=== PATIENT | female | born 1935 | race Asian ===

== ENCOUNTER 2016-10-23 11:29 | Inpatient (IN) | payer MEDICARE, OTHER ==
[~2016-10-23] VITALS: Ht 165.1 cm; Wt 52.6 kg
[~2016-10-23 11:29] MED LIST: AMLO-218 PO; ASC500 PO; ASPI81TA3 PO; ATEN-138 PO; ATOR20TA38 PO; GABA100C14 PO; LEVO50TA74 PO; MECL25TA2 PO; NYST15CR16 TOP; ONDA4TAB35 PO
[2016-10-23] MEDS ORDERED: ONDANSETRON 4 MG INJ IV STA (11:32)
[2016-10-23] MEDS ORDERED: SOD CHLORIDE 0.9% 1,000 ML IV STA (11:32)
[2016-10-23 11:51] LABS: ADD SCAN DIFF NO
[2016-10-23 11:57] LABS: BASOPHILS % 0.3 % (0.0-2.0); HEMATOCRIT 40.9 % (37.0-47.0); HEMOGLOBIN 13.2 g/dl (12.0-16.0); LYMPHOCYTES # 0.9 10^3/ul (0.8-2.9); MEAN CORPUSCULAR HEMOGLOBIN 30.9 pg (29.0-33.0); MEAN CORPUSCULAR HGB CONC 32.3 g/dl (32.0-37.0); MEAN CORPUSCULAR VOLUME 95.8 fl (82.0-101.0); MEAN PLATELET VOLUME 10.6 fl (7.4-10.4); MONOCYTE # 0.4 10^3/ul (0.3-0.9); MONOCYTES % 5.7 % (0.0-11.0); NEUTROPHIL # 5.3 10^3/ul (1.6-7.5); NEUTROPHILS % 80.7 % (39.0-77.0); PLATELET COUNT 178 10^3/UL (140-415); RED BLOOD COUNT 4.27 10^6/ul (4.20-5.40); RED CELL DISTRIBUTION WIDTH 11.8 % (11.5-14.5); WHITE BLOOD COUNT 6.5 10^3/ul (4.8-10.8)
[2016-10-23] MEDS ORDERED: MECLIZINE 12.5 MG TAB PO ONE (12:00)
[2016-10-23 12:09] LABS: INR 1.03; PROTIME 13.5 Sec (12.2-14.2); PT RATIO 1.1
[2016-10-23 12:10] LABS: PARTIAL THROMBOPLASTIN TIME 29.9 Sec (25.0-35.0)
[2016-10-23 12:19] LABS: ALBUMIN/GLOBULIN RATIO 1.56; BILIRUBIN,INDIRECT 0.6 mg/dl (0-1.1); BILIRUBIN,TOTAL 0.6 mg/dl (0.2-1.3); CALCIUM 9.4 mg/dl (8.4-10.2); CREATININE 0.74 mg/dl (0.44-1.00); POTASSIUM 4.3 mmol/L (3.5-5.1); TOTAL PROTEIN 8.2 g/dl (6.1-8.1)
[2016-10-23] MEDS ORDERED: METO25TA7 PO (12:20)
[2016-10-23] MEDS ORDERED: LOSA100T7 PO (12:20)
[2016-10-23] MEDS ORDERED: BEN50 PO (12:20)
[2016-10-23 12:29] LABS: TROPONIN-I 0.117 ng/ml (0.00-0.12)
[2016-10-23] MEDS ORDERED: PIPER-TAZO 3.375 GM IV (PMX) 100 ML IVPB STA (12:32)
[2016-10-23] MEDS ORDERED: VANCOMYCIN 1 GM (PMX) 250 ML IVPB STA (12:32)
--- NOTE | 2016-10-23 12:38 | RADRPT ---
PROCEDURE: CT brain without contrast CLINICAL INDICATION: Headache, vomiting, dizziness TECHNIQUE: CT of the brain without contrast performed on a multidetector CT scanner, with multiplan ar reformats. One or more of the following dose reduction techniques were used: Automated exposure control, adjustment in mA and / or kV according to patient size, use of iterative reconstructive karen hnique. CTDIvol = 42 mGy; DLP = 720 mGy-cm. COMPARISON: CT brain and 01/07/2015 FINDINGS: There is an area of hypodensity with loss of jones-white differentiation compatible with recent infar ct involving the superior left cerebellar hemisphere, with a small focus also identified in the righ t cerebellar hemisphere. No acute intracranial hemorrhage is identified. There is mild local mass effect associated with the cerebellar infarct on the left without hydrocephalus or herniation identi fied. No extra-axial fluid collection is seen. No significant midline shift is identified. The ventricles and sulci are mildly enlarged compatible with generalized volume loss. There are mild areas of hypodensity in the periventricular - deep white matter which are nonspecific but suggestive of chronic small vessel ischemic changes. Jones-white differentiation is otherwise p reserved. Atherosclerotic calcifications of the intracranial internal carotid arteries are noted. Osseous structures are unremarkable. Partial posterior right ethmoid air cell opacification is seen . IMPRESSION: 1. Recent cerebellar infarcts, left greater than right, without acute intracranial hemorrhage, janet iation or hydrocephalus. 2. Mild generalized volume loss, with mild chronic small vessel ischemic changes. Results called to Dr. SMITH at 04:34 p.m., 10/23/2016. RPTAT: VV .Jose Reaves MD, Date Time Electronically viewed and signed by .Jose Reaves MD, MD on 10/23/2016 12:38 .O/
[2016-10-23] MEDS ORDERED: ASPIRIN (EC) 81 MG TAB PO ONE (13:00)
[2016-10-23] MEDS ORDERED: ASPIRIN 325 MG TAB PO ONE (13:00)
--- NOTE | 2016-10-23 14:03 | RADRPT ---
PROCEDURE: XR Chest. CLINICAL INDICATION: Shortness of breath. TECHNIQUE: Single frontal view of the chest was obtained. COMPARISON: Chest x-ray 06/12/2014 11:58 a.m. FINDINGS: The soft tissues are normal. There are degenerative osteophytes in the thoracic spine. The left ve ntricle is enlarged. There is increased density in the area of the right hilum. The mediastinum is otherwise normal. The pulmonary vasculature is normal. There are vascular calcifications in the ao rtic arch. There is a plate-like density along the upper left heart border. No focal infiltrate is identified. There is a linear scar projecting over the medial aspect of the right diaphragm which i s unchanged. The costophrenic angles are normal. Minimal right apical pleural scarring is noted. IMPRESSION: 1. A lateral view of the chest is recommended to further evaluate asymmetric density in the area of the right hilum which is unchanged compared to 06/12/2014 and therefore likely benign. 2. Left ventricular enlargement. 3. Atherosclerosis aortic arch. 4. Spondylosis of the thoracic spine. 5. Parenchymal scarring adjacent to the upper left heart border and over the medial aspect of the l eft diaphragm. There is no evidence of active cardiopulmonary disease. RPTAT:AAJJ Physician Lino Date Time Electronically viewed and signed by Physician Lino on 10/23/2016 14:02 CHELY/
[2016-10-23] MEDS ORDERED: ACETAMINOPHEN 325 MG TAB PO PRN ×2 (14:30→19:00)
[2016-10-23] MEDS ORDERED: ONDANSETRON 4 MG INJ IV PRN ×2 (14:30→19:00)
--- NOTE | 2016-10-23 16:38 | ERA ---
ER Documentation Chief Complaint Date/Time DATE: 10/23/16 TIME: 16:24 Chief Complaint PT FROM HOME FOR VOMIT AND NAUSEA SINCE 10/22 AT 2300 HPI This is an 81-year-old female that presents to the emergency department brought in by EMS after her son phone 911 for persistent nausea and vomiting. At 1 AM, 13 hours prior to arrival, the patient stated she felt nauseous and had an episode of nonbloody nonbilious emesis roughly 1 hour after eating fish. She attributed this to food poisoning but denied any abdominal pain or diarrhea. She stated the nausea persisted throughout the night and she did not want to move from the kitchen floor. Her son tried to get her to bed but she stated she felt more comfortable lying supine on the kitchen floor. She continued to have multiple episodes of nonbloody nonbilious emesis throughout the night. She denied any weakness of her upper or lower extremities and also denied a headache or changes in vision. She she denied any recent remote head trauma. Again she denied abdominal pain and had no shortness of breath at rest or exertion. She no chest pain or pressure that radiates to the neck arm back or jaw. She does have a history of vertigo and took a meclizine with no improvement of her symptoms. However the patient denied dizziness or vertigo at this time. She also denied any tinnitus. Her son became concerned and therefore phoned 911 and she was brought to the emergency department to be further evaluated. ROS All systems reviewed and are negative except as per history of present illness. Medications Home Meds Reported Medications Metoprolol Succinate* (Toprol XL*) 25 Mg Tab.sr.24h, 25 MG PO BID, #30 TAB 10/23/16 Losartan Potassium* (Losartan Potassium*) 100 Mg Tablet, 100 MG PO DAILY, TAB 10/23/16 Diphenhydramine Hcl* (Benadryl*) 50 Mg Cap, 50 MG PO QHS Y for SLEEP, CAP 10/23/16 Aspirin* (Aspirin* Chew) 81 Mg Tab.chew, 81 MG PO DAILY, TAB.CHEW 06/12/14 Levothyroxine Sodium* (Levothyroxine Sodium*) 50 Mcg Tablet, 50 MCG PO AC BREAKFAST, TAB 06/12/14 Discontinued Reported Medications Ascorbic Acid (Vitamin C) 500 Mg Tab, 1000 MG PO DAILY, TAB 06/12/14 Gabapentin* (Gabapentin*) 100 Mg Capsule, 100 MG PO TID, CAP 06/12/14 Discontinued Scripts Nystatin-Triamcinolone* (Nystatin-Triamcinolone* Cream) 15 Gm Cream.gm., 1 APPLIC TOP BID for 7 Days, TUB Prov:LONNY MEDINA MD 01/11/15 Ondansetron Hcl* (Zofran* ODT) 4 mg -ODT Tab.disper, 4 MG PO Q6 Y for NAUSEA AND /OR VOMITING, #30 TAB Prov:LONNY MEDINA MD 01/11/15 Meclizine Hcl* (Antivert*) 25 Mg Tablet, 25 MG PO Q6H Y for dizziness, #20 TAB Prov:LONNY MEDINA MD 01/11/15 Atenolol (Tenormin) 25 Mg Tab, 25 MG PO DAILY for 30 Days, TAB Prov:ABBY IBARRA 01/09/15 Amlodipine Besylate* (Norvasc*) 10 Mg Tab, 5 MG PO BID for 30 Days Prov:ABBY IBARRA 01/09/15 Atorvastatin Calcium* (Atorvastatin Calcium*) 20 Mg Tab, 20 MG PO HS, #30 Prov:ABBY IBARRA 15 Allergies Allergies: Coded Allergies: No Known Allergies (Verified Allergy, Mild, 10/23/16) PMhx/Soc History of Surgery: No Anesthesia Reaction: No Hx Neurological Disorder: No Hx Respiratory Disorders: No Hx Cardiac Disorders: Yes (IN, STENT) Hx Psychiatric Problems: No Hx Miscellaneous Medical Probl: Yes (htn, dyslipidemia, atherosclerosis heart dse, SYNCOPE ) Hx Alcohol Use: No Hx Substance Use: No Hx Tobacco Use: No Smoking Status: Never smoker Physical Exam Vitals Vital Signs Date Time Temp Pulse Resp B/P Pulse Ox O2 Delivery O2 Flow Rate FiO2 10/23/16 15:43 67 16 145/67 100 Nasal Cannula 2.0 10/23/16 13:39 85 24 169/105 98 Nasal Cannula 2.0 10/23/16 11:46 79 25 98 Room Air 10/23/16 11:43 98.6 88 17 183/61 98 Physical Exam Constitutional:Well-developed. Well-nourished. Lying supine in a stretcher covered and nonbloody nonbilious emesis HEENT:Normocephalic. Atraumatic.Pupils were equal round reactive to light. Dry mucous membranes.No tonsillar exudates. Neck: No nuchal rigidity. No lymphadenopathy. No posterior cervical spine tenderness or step-offs. Respiratory: Not using accessory muscles of respiration.Lungs were clear to auscultation bilaterally. No rhonchi. No rales. No wheezing. Cardiovascular: Regular rate regular rhythm.No murmurs. No rubs were appreciated.S1, S2 normal. Distal pulses are palpable 2+ bilaterally. GI: Abdomen was soft. Nontender. Non Distended. No pulsatile abdominal masses or bruits. No rebound. No guarding. Bowel sounds were present and normal. Muscle skeletal: Full range of motion of both the upper and lower extremities bilaterally.Normal muscle tone.No assymetrical calf tenderness or swelling. Skin: No petechia, no purpura. No lesions on the palms or the soles of the feet. No maculopapular rash. NEURO: Patient was alert, awake, orientated x3.No facial droop. Gait not observed as patient felt too weak to ambulate.Speech had regular rate and rhythm. No focal neurological deficits. Handgrip equal and symmetrical bilaterally. No slurred speech. Result Diagram: 10/23/16 1130 10/23/16 1130 Results 24 hrs Laboratory Tests Test 10/23/16 11:30 10/23/16 14:25 White Blood Count 6.510^3/ul Red Blood Count 4.2710^6/ul Hemoglobin 13.2g/dl Hematocrit 40.9% Mean Corpuscular Volume 95.8fl Mean Corpuscular Hemoglobin 30.9pg Mean Corpuscular Hemoglobin Concent 32.3g/dl Red Cell Distribution Width 11.8% Platelet Count 16134^3/UL Mean Platelet Volume 10.6fl Neutrophils % 80.7% Lymphocytes % 13.0% Monocytes % 5.7% Eosinophils % 0.0% Basophils % 0.3% Nucleated Red Blood Cells % 0.0/100WBC Neutrophils # 5.310^3/ul Lymphocytes # 0.910^3/ul Monocytes # 0.410^3/ul Eosinophils # 0.010^3/ul Basophils # 0.010^3/ul Nucleated Red Blood Cells # 0.010^3/ul Prothrombin Time 13.5Sec Prothrombin Time Ratio 1.1 INR International Normalized Ratio 1.03 Activated Partial Thromboplast Time 29.9Sec Sodium Level 138mmol/L Potassium Level 4.3mmol/L Chloride Level 100mmol/L Carbon Dioxide Level 23mmol/L Anion Gap 19 Blood Urea Nitrogen 13mg/dl Creatinine 0.74mg/dl Glucose Level 139mg/dl Lactic Acid Level 6.9mmol/L 2.9mmol/L Calcium Level 9.4mg/dl Total Bilirubin 0.6mg/dl Direct Bilirubin 0.00mg/dl Indirect Bilirubin 0.6mg/dl Aspartate Amino Transf (AST/SGOT) 37IU/L Alanine Aminotransferase (ALT/SGPT) 28IU/L Alkaline Phosphatase 103IU/L Troponin I 0.117ng/ml Total Protein 8.2g/dl Albumin 5.0g/dl Globulin 3.20g/dl Albumin/Globulin Ratio 1.56 Amylase Level 71U/L Lipase 63U/L Current Medications Medications (Trade) Dose Ordered Sig/Zay Route PRN Reason Start Time Stop Time Status Last Admin Dose Admin Sodium Chloride (NS) 1,000 ml @ 1,000 mls/hr Q1H STAT IV 10/23/16 11:32 10/23/16 12:31 DC 10/23/16 11:58 Ondansetron HCl (Zofran Inj) 4 mg ONCE STAT IV 10/23/16 11:32 10/23/16 11:35 DC 10/23/16 11:58 Meclizine HCl 25 mg 25 mg ONCE ONCE PO 10/23/16 12:00 10/23/16 12:01 DC 10/23/16 11:58 Vancomycin HCl 250 ml @ 125 mls/hr ONCE STAT IVPB 10/23/16 12:32 10/23/16 14:31 DC 10/23/16 14:25 Piperacillin Sod/ Tazobactam Sod (Zosyn 3.375gm/ 100 ml (Pmx)) 100 ml @ 200 mls/hr ONCE STAT IVPB 10/23/16 12:32 10/23/16 13:01 DC 10/23/16 13:07 Aspirin (Aspirin) 325 mg ONCE ONCE PO 10/23/16 13:00 10/23/16 13:01 Cancel Aspirin (Halfprin) 81 mg ONCE ONCE PO 10/23/16 13:00 10/23/16 13:01 DC 10/23/16 13:15 Ondansetron HCl (Zofran Inj) 4 mg ER BRIDGE PRN IV NAUSEA AND/OR VOMITING 10/23/16 14:30 10/24/16 14:29 Acetaminophen (Tylenol Tab) 650 mg ER BRIDGE PRN PO MILD PAIN/FEVER 10/23/16 14:30 10/24/16 14:29 Procedures/MDM This patient presented to the emergency department with nausea and vomiting. She is meeting placed in a special crimes investigator continuous pulse oximetry and IV access was established by nursing staff. The patient had no focal neurological deficits to suggest a CVA at this time given that upon evaluation in attempting to sit the patient up she started to feel a sudden onset of dizziness I did feel is necessary to obtain a CT scan of the patient's head. She was hypertensive and a CT scan was concerning for an acute ischemic infarct. I spoke with the radiologist at this time. I spoke with the telemetry neurologist on-call, who evaluated the patient, and did agree that the patient was not a TPA candidate. Please note that a code stroke was not called upon arrival due to the patient not complaining of any strokelike symptoms at this time. She was given a 1 mg of aspirin and an MRI and MRA of the head and neck was ordered as requested by the neurologist. This patient presented to the emergency department with severely elevated blood pressure and had abnormal findings on the CT scan of her head. My differential diagnosis included but was not limited to conditions that could end-organ damage such as acute coronary syndrome, acute pulmonary edema, aortic dissection , subarachnoid hemorrhage, intracerebral hemorrhage, cerebral infarction, withdrawal syndromes from beta blockers, or states of catecholamine excess such as pheochromocytoma or drug intoxication. The patient had uncontrolled hypertensive with end-organ damage to suggest hypertensive emergency. The treatment goal was immediate reduction of the mean arterial blood pressure. This was done in a controlled, graded manor, using improvement of the patient's condition as a guide. The patient's blood pressure reduction did not exceed more then a 20-25 percent reduction within the first 30 to 60 minutes. The patient was put on a special crimes investigator, continuous pulse oximetry, and IV access was established by nursing staff. The antihypertensive agent used was IV labetalol. 12 Lead EKG tracing ordered and reviewed by myself showed: Normal sinus rhythm of 72 bpm and no arrhythmia. DC interval normal. QRS duration normal. No ST segment elevation No ST segment depression. No changes consistent with acute ischemia. CT scan of the head or and reviewed by myself as well as the radiologist indicated the followin. Recent cerebellar infarcts, left greater than right, without acute intracranial hemorrhage, herniation or hydrocephalus. 2. Mild generalized volume loss, with mild chronic small vessel ischemic changes. As obtained a chest radiograph which showed no infiltrates or pneumothorax or pleural effusion Patient will be admitted in serious condition to Dr. to the telemetry service with an anticipated stay of greater than 2 midnights. Critical Care: Time: 60 minutes Treatments/Evaluations: Close monitoring and treatment of unstable vital signs, cardiorespiratory, and neurologic status, while maintaining tight balance of fluid, respiratory, and cardiac interventions. Time does not include performing any of the above billable procedures. Departure Diagnosis: Primary Impression: Nausea and vomiting Qualified Code: R11.2 - Non-intractable vomiting with nausea, unspecified vomiting type Additional Impressions: Cerebellar infarction Hypertensive emergency, no CHF Condition: Serious PAO SMITH Oct 23, 2016 16:36
--- NOTE | 2016-10-23 17:18 | RADRPT ---
PROCEDURE: MRI Brain without contrast. CLINICAL INDICATION: Headaches vomiting and dizziness TECHNIQUE: An MRI of the brain was performed on a high resolution hi-definition MRI scanner utiliz ing the following sequences: Sagittal and axial T1 weighted, axial T2 weighted, axial T2 FLAIR, axia l diffusion weighted with ADC mapping, coronal GRE, and axial T1 FLAIR. COMPARISON: CT dated 10/23/2016 FINDINGS: The scalp and calvarium are normal. The paranasal sinuses are remarkable for mild chronic bilateral frontal, ethmoid maxillary and sphenoid sinus disease. The bilateral mastoid air cells are clear an d the middle ear cavities are clear. On the FLAIR and T2-weighted sequences, multiple punctate foci of hyperintensity are present in the bilateral centrum semiovale, bilateral periventricular white matter compatible with mild chronic adeel rovascular ischemic disease. Also noted are wedge shaped areas of FLAIR and T2 hyperintensity withi n the left cerebellum extending into the left vermis as well as a smaller focus of hyperintensity in the right cerebellum. On diffusion weighted sequences, restricted diffusion is present in the left cerebellum, left vermis and right cerebellum compatible with acute non hemorrhagic infarcts.The elidia tricles and sulci are age appropriate. Mild to moderate diffuse volume loss is present. No evidence of intracranial hemorrhage, mass effect or midline shift is present. . No diffusion weighted abnorm alities are seen to suggest the presence of acute ischemia or recent infarct. No hypointense signal abnormalities are seen on the GRE images to suggest the presence of blood degradation products. Normal flow voids are visible in the proximal intracranial arteries and dural sinuses, indicating patency. IMPRESSION: 1. Acute non hemorrhagic left cerebellar hemisphere greater than right cerebellar infarcts with invo lvement of the left superior and inferior vermis. 2. Mild chronic microvascular ischemic disease 3. Mild to moderate diffuse volume loss A call report was made to Kaylyn Fowler at 10/23/2016 5:14:54 PM following the completion of the examination by the undersigned. RPTAT: HDC .Aleena Javed MD, Date Time Electronically viewed and signed by .Aleena Javed MD, on 10/23/2016 17:18 .C/
--- NOTE | 2016-10-23 17:22 | RADRPT ---
PROCEDURE: MRA Brain. CLINICAL INDICATION: Stroke evaluation TECHNIQUE: An MRA of the brain was performed on a GE 3.0 Sofi scanner 3-D [id number] MR angio graphy technique. Source and MIP images were reviewed. COMPARISON: CT and MR brain 10/23/2016 FINDINGS: The internal carotid arteries are patent and normal in caliber. The middle cerebral and the anterio r cerebral arteries are also patent and normal in caliber with no significant luminal irregularity o r narrowing identified. The vertebral arteries, basilar artery, and superior cerebellar arteries ar e visualized and normal in appearance. The bilateral vertebral arteries are codominant the posteri or cerebral arteries are patent at their origins bilaterally as well as at the P1 P2 segments. Poor antegrade flow is noted to adequately evaluate the P 3 and more distal posterior cerebral artery br anches. No aneurysms are detected. IMPRESSION: 1. Normal MR angiogram of the [place]. 2. Bilateral attenuated segments of the third order posterior cerebral artery branches which may re present decreased antegrade flow. A call report was made to Kaylyn Fowler at 10/23/2016 5:18:50 PM following the completion of the examination by the undersigned. RPTAT: HDC .Aleena Javed MD, Date Time Electronically viewed and signed by .Aleena Javed MD, on 10/23/2016 17:21 .C/
--- NOTE | 2016-10-23 18:08 | RADRPT ---
PROCEDURE: MRA of the neck without contrast CLINICAL INDICATION: CVA. TECHNIQUE: 2-D and 3-D [id number] MRA of the neck was performed on a 1.5 Sofi MRI scanner. 3- D MIP reconstructions were generated. COMPARISON: Brain MRI dated 10/23/2016. FINDINGS: There is irregular loss of flow signal in the high cervical right ICA, nonspecific. In-plain saturat ion artifact is seen along the distal bilateral vertebral arteries. No significant stenosis or occl usion is identified along the left cervical and bilateral vertebral arteries. No aneurysm is identif ied. IMPRESSION: 1. Irregular loss of flow signal in the high cervical right ICA, nonspecific but possibly represent ing non hemodynamically significant stenosis due to atherosclerotic plaque. This could be further ev aluated with CTA if clinically warranted. 2. No significant stenosis or occlusion along the left carotid and bilateral vertebral arteries. RPTAT: HTAR .Lyle Castañeda MD, MD Date Time Electronically viewed and signed by .Lyle Castañeda MD, MD on 10/23/2016 18:07 .R/
[2016-10-23] MEDS ORDERED: HYDROCODONE/APAP (5/325) TAB PO PRN (19:00)
[2016-10-23] MEDS ORDERED: BISACODYL 10 MG SUPP PR PRN (19:00)
[2016-10-23] MEDS ORDERED: morphine 2 MG INJ IV PRN (19:00)
[2016-10-23] MEDS ORDERED: MECLIZINE 25 MG TAB PO PRN (19:00)
[2016-10-23] MEDS ORDERED: MAGNESIUM HYDROXIDE 30ML CUP PO PRN (19:00)
[2016-10-23] MEDS ORDERED: NACL 0.9% 3 ML SYG IV SCH (19:00)
[2016-10-23] MEDS ORDERED: DOCUSATE SODIUM 100 MG CAP PO PRN (19:00)
[2016-10-23] MEDS: SOD CHLORIDE 0.9% 1,000 ML IV SCH (19:52)
[2016-10-23 22:04] VITALS: PULSE 64
[2016-10-23 22:20] VITALS: BP 195/81; PULSE 66; RESP 16
[2016-10-23 22:44] VITALS: Ht 165.1 cm; Wt 52.6 kg
[2016-10-23 22:49] VITALS: BP 187/78; PULSE 66
[2016-10-23 22:50] VITALS: BP 186/80; PULSE 67
[2016-10-23] MEDS: FAMOTIDINE 20 MG TAB PO SCH (22:54)
[2016-10-23] MEDS: METOPROLOL 25 MG TAB PO SCH (22:54)
[2016-10-24] VITALS (17 sets, daily range): BP systolic 117–203; BP diastolic 54–103; PULSE 49–90; RESP 17–19
[2016-10-24] MEDS: SOD CHLORIDE 0.9% 1,000 ML IV SCH (06:04)
[2016-10-24] MEDS ORDERED: LEVOTHYROXINE 50 MCG TAB PO SCH (07:00)
[2016-10-24] MEDS: ASPIRIN 81 MG TAB PO SCH (08:55)
[2016-10-24] MEDS: LOSARTAN 50 MG TAB PO SCH (08:55)
[2016-10-24] MEDS: FAMOTIDINE 20 MG TAB PO SCH (08:56)
[2016-10-24] MEDS: METOPROLOL 25 MG TAB PO SCH (08:56)
[2016-10-24] MEDS ORDERED: ENOXAPARIN 40 MG/0.4 ML SYG SC SCH (09:00)
[2016-10-24 09:11] LABS: ADD SCAN DIFF NO
[2016-10-24 09:17] LABS: BASOPHIL # 0.1 10^3/ul (0.0-0.1); EOSINOPHILS # 0.2 10^3/ul (0.0-0.5); EOSINOPHILS % 2.3 % (0.0-7.0); HEMATOCRIT 38.2 % (37.0-47.0); HEMOGLOBIN 12.3 g/dl (12.0-16.0); LYMPHOCYTES % 28.6 % (15.0-51.0); MEAN CORPUSCULAR HEMOGLOBIN 31.5 pg (29.0-33.0); MEAN CORPUSCULAR HGB CONC 32.2 g/dl (32.0-37.0); MEAN CORPUSCULAR VOLUME 97.9 fl (82.0-101.0); MEAN PLATELET VOLUME 10.9 fl (7.4-10.4); MONOCYTE # 0.9 10^3/ul (0.3-0.9); NEUTROPHIL # 3.9 10^3/ul (1.6-7.5); PLATELET COUNT 160 10^3/UL (140-415); RED CELL DISTRIBUTION WIDTH 11.9 % (11.5-14.5); WHITE BLOOD COUNT 7.1 10^3/ul (4.8-10.8)
[2016-10-24 09:36] LABS: ALBUMIN/GLOBULIN RATIO 1.21; BILIRUBIN,INDIRECT 1.3 mg/dl (0-1.1); BILIRUBIN,TOTAL 1.3 mg/dl (0.2-1.3); CHOL/HDL RATIO 3.8 RATIO; CREATININE 0.72 mg/dl (0.44-1.00); MAGNESIUM 1.7 mg/dl (1.7-2.5); POTASSIUM 3.1 mmol/L (3.5-5.1); TOTAL PROTEIN 7.3 g/dl (6.1-8.1)
[2016-10-24] MEDS ORDERED: POTASSIUM CHLORIDE (SR) 20 MEQ TAB PO STA (10:55)
[2016-10-24] MEDS ORDERED: MAGNESIUM SULFATE 2 GM/50 ML 50 ML IVPB ONE (11:00)
[2016-10-24] MEDS ORDERED: POTASSIUM CHLORIDE 250 ML IVPB ONE (11:00)
--- NOTE | 2016-10-24 11:02 | HP ---
Date/Time of Note Date/Time of Note DATE: 10/24/16 TIME: 11:01 Assessment/Plan VTE Prophylaxis VTE Prophylaxis Intervention: other (Lovenox treatment dosing) Lines/Catheters Urinary Cath still in place: No Assessment/Plan Assessment/Plan 81-year-old female with: 1. Acute bilateral cerebellar CVA, symptomatic with vertigo and nausea, also found to be in atrial fibrillation Continue blood pressure control for now allowing for permissive hypertension Anticoagulation with Lovenox 2D echocardiogram done results pending Neurology consult PT, OT, ST consults 2. Atrial fibrillation, will make sure patient is back on Toprol XL twice daily , continue Lovenox for anticoagulation was planned to switch to Xarelto or Eliquis prior to discharge if 2D echocardiogram allows Rate control and telemetry monitoring Also I will decrease her Synthroid seems she may be a little over replaced 3. Hypothyroidism: TFTs showing mild suppression of TSH, will decrease her Synthroid dosing 4. Hyperlipidemia: Follow-up on fasting lipid panel, continue statin therapy especially in setting of acute CVA 5. Hypertension: Continue home medication again allowing for some permissive hypertension in setting of acute CVA. 6. Hypokalemia: Replete potassium and magnesium levels Prophylaxis: Patient on full anticoagulation in setting of A. fib and acute CVA , Pepcid for GI prophylaxis Disposition: Neurology consult, heart rate control, 2D echocardiogram which possible cardiology consult as needed, PT/OT/ST evaluation HPI/ROS Admit Date/Time Admit Date/Time Oct 23, 2016 at 14:30 Hx of Present Illness Chief complaint: Dizziness, nausea, vomiting 24 hours History of presenting illness: This is a 81-year-old female with history of possible coronary artery disease, atrial fibrillation, has been on beta- blockers but also reports that she has been on aspirin for the past few years., Also has hypothyroidism on Synthroid, brought into the emergency department with reported episode of nausea vomiting and severe dizziness for 24 hours. CAT scan of the head in the emergency department did show possible acute cerebral or cerebellar CVA. Stroke code was called apparently but the patient was way out of window therefore recommendation was for her to get MRIs done. MRIs did confirm cerebellar stroke. Patient was admitted to the telemetry floor on monitor. This morning she did go into atrial fibrillation, she is now on the full anticoagulation along with secondary prevention of stroke protocol. She is still vertiginous, no further motor deficit. She denies chest pain, she feels a little nauseous. ROS Constitutional: fatigue, nausea, poor po Respiratory: no complaints Cardiovascular: no complaints Gastrointestinal: no complaints Genitourinary: no complaints Musculoskeletal: no complaints Skin: no complaints Neurologic: dizziness Endocrine: no complaints Psychological: no complaints PMH/Family/Social Past Medical History Atrial fibrillation possibly paroxysmal Previous history of CVA versus acute IL family unclear Possible history of cardiac stent family unclear Hypertension Hypothyroidism Hyperlipidemia Past Surgical History Past Surgical Hx: no surgical history Social History Alcohol Use: none Smoking Status: Never smoker Drug Use: none Exam/Review of Systems Vital Signs Vitals Vital Signs Date Time Temp Pulse Resp B/P Pulse Ox O2 Delivery O2 Flow Rate FiO2 10/24/16 08:14 75 10/24/16 07:48 98.1 17 117/57 96 10/23/16 22:20 Nasal Cannula 2.0 Intake and Output 10/23/16 10/23/16 10/24/16 15:00 23:00 07:00 Intake Total 100 ml 360 ml Output Total 300 ml Balance 100 ml 60 ml Exam Constitutional: alert, distress (From vertigo and dizziness), oriented Respiratory: clear to auscultation, normal air movement Cardiovascular: irregular rhythm (Atrial fibrillation) Gastrointestinal: non-tender, soft Musculoskeletal: nl extremities to inspection Extremities: normal pulses, other (No edema, clubbing or cyanosis) Neurological: CABINET ASSEMBLER II-XII intact, lethargic, nl mental status, nl speech, nl strength (5 out of 5), other (Vertigo, imbalance. No nystagmus) Labs Result Diagram: 10/24/1613 10/24/1617 Medications Medications Current Medications Sodium Chloride (NS) 1,000 ml @ 80 mls/hr [id number] IV Last administered on 10/24 06:04; Admin Dose 80 MLS/HR; Start 10/23/16 at 18:35 Ondansetron HCl (Zofran Inj) 4 mg Q6H PRN IV NAUSEA AND/OR VOMITING; Start at 19:00 Aspirin (Aspirin) 81 mg DAILY PO Last administered on 10/24/16 08:55; Admin Dose 81 MG; Start 10/24/16 at 09:00 Acetaminophen (Tylenol Tab) 650 mg Q6H PRN PO PAIN LEVEL 1-3 OR FEVER Last administered on 10/23/16 23:27; Admin Dose 650 MG; Start 10/23/16 at 19:00 Acetaminophen/ Hydrocodone Bitart ([place] (5/325)) 1 tab Q6H PRN PO PAIN LEVEL 4 -6; Start 10/23/16 at 19:00 Morphine Sulfate (morphine) 2 mg Q4H PRN IV PAIN LEVEL 7-10; Start 10/23/16 at 19:00 Docusate Sodium (Colace) 100 mg Q12H PRN PO CONSTIPATION; Start 10/23/16 at 19: 00 Magnesium Hydroxide (Milk Of Mag) 30 ml DAILY PRN PO CONSTIPATION; Start at 19:00 Bisacodyl (Dulcolax Supp) 10 mg DAILY PRN MS CONSTIPATION; Start 10/23/16 at 19 :00 Famotidine (Pepcid) 20 mg DAILY PO Last administered on 10/24/16 08:56; Admin Dose 20 MG; Start 10/23/16 at 21:00 Enoxaparin Sodium (Lovenox) 40 mg DAILY SC Last administered on 10/24/16 09:00 ; Admin Dose 40 MG; Start 10/24/16 at 09:00 Meclizine HCl (Antivert) 25 mg TID PRN PO vertigo Last administered on 06:05; Admin Dose 25 MG; Start 10/23/16 at 19:00 Losartan Potassium (Cozaar) 100 mg DAILY PO Last administered on 10/24/16 08: 55; Admin Dose 100 MG; Start 10/24/16 at 09:00 Metoprolol Tartrate 25 mg 25 mg BID PO Last administered on 10/24/16 08:56; Admin Dose 25 MG; Start 10/23/16 at 21:00 Magnesium Sulfate (Magnesium Sulfate 2 Gm/50 ml) 50 ml @ 25 mls/hr ONCE ONCE IVPB ; Start 10/24/16 at 11:00; Stop 10/24/16 at 12:59; Status FRANKLIN PALOMARES Oct 24, 2016 11:02
[2016-10-24] MEDS: POTASSIUM CHLORIDE 40 MEQ in SOD CHLORIDE 0.9% 1,000 ML IV SCH (14:07)
[2016-10-24 16:30] LABS: CK-MB 3.88 ng/ml (0.0-2.4)
[2016-10-24 16:34] LABS: TROPONIN-I 0.218 ng/ml (0.00-0.12)
[2016-10-24] MEDS: ATORVASTATIN 20 MG TAB PO SCH (21:30)
[2016-10-24] MEDS: ENOXAPARIN 60 MG/0.6 ML SYG SC SCH (21:32)
[2016-10-24 23:36] LABS: CK-MB 3.43 ng/ml (0.0-2.4)
[2016-10-24] MEDS: hydrALAzine 20 MG INJ IV PRN (23:39)
[2016-10-24 23:43] LABS: TROPONIN-I 0.197 ng/ml (0.00-0.12)
[2016-10-25] VITALS (14 sets, daily range): BP systolic 157–197; BP diastolic 72–101; PULSE 40–140; RESP 18–20
[2016-10-25] MEDS: POTASSIUM CHLORIDE 40 MEQ in SOD CHLORIDE 0.9% 1,000 ML IV SCH ×3 (03:53→17:44)
[2016-10-25] MEDS: LEVOTHYROXINE 25 MCG TAB PO SCH (07:10)
[2016-10-25 07:24] LABS: ADD SCAN DIFF NO
[2016-10-25 07:28] LABS: BASOPHIL # 0.1 10^3/ul (0.0-0.1); BASOPHILS % 0.7 % (0.0-2.0); EOSINOPHILS # 0.1 10^3/ul (0.0-0.5); EOSINOPHILS % 0.6 % (0.0-7.0); HEMATOCRIT 39.2 % (37.0-47.0); HEMOGLOBIN 12.8 g/dl (12.0-16.0); LYMPHOCYTES # 1.5 10^3/ul (0.8-2.9); LYMPHOCYTES % 17.6 % (15.0-51.0); MEAN CORPUSCULAR HEMOGLOBIN 31.8 pg (29.0-33.0); MEAN CORPUSCULAR HGB CONC 32.7 g/dl (32.0-37.0); MEAN CORPUSCULAR VOLUME 97.3 fl (82.0-101.0); MEAN PLATELET VOLUME 10.9 fl (7.4-10.4); MONOCYTES % 11.9 % (0.0-11.0); NEUTROPHIL # 5.7 10^3/ul (1.6-7.5); NEUTROPHILS % 68.7 % (39.0-77.0); PLATELET COUNT 165 10^3/UL (140-415); RED BLOOD COUNT 4.03 10^6/ul (4.20-5.40); RED CELL DISTRIBUTION WIDTH 11.9 % (11.5-14.5); WHITE BLOOD COUNT 8.3 10^3/ul (4.8-10.8)
[2016-10-25 07:52] LABS: ALBUMIN 3.8 g/dl (3.3-4.9); ALBUMIN/GLOBULIN RATIO 1.26; BILIRUBIN,INDIRECT 0.5 mg/dl (0-1.1); BILIRUBIN,TOTAL 0.5 mg/dl (0.2-1.3); CREATININE 0.68 mg/dl (0.44-1.00); POTASSIUM 4.4 mmol/L (3.5-5.1); TOTAL PROTEIN 6.8 g/dl (6.1-8.1)
[2016-10-25 07:54] LABS: CK-MB 2.48 ng/ml (0.0-2.4)
[2016-10-25 08:03] LABS: TROPONIN-I 0.151 ng/ml (0.00-0.12)
[2016-10-25 08:17] LABS: MAGNESIUM 1.9 mg/dl (1.7-2.5); PHOSPHORUS 2.8 mg/dl (2.5-4.9)
[2016-10-25] MEDS: FAMOTIDINE 20 MG TAB PO SCH (08:28)
[2016-10-25] MEDS: ASPIRIN 81 MG TAB PO SCH (08:28)
[2016-10-25] MEDS: hydrALAzine 20 MG INJ IV PRN ×2 (08:29→17:44)
[2016-10-25] MEDS: ENOXAPARIN 60 MG/0.6 ML SYG SC SCH ×2 (08:31→20:58)
[2016-10-25] MEDS: LOSARTAN 50 MG TAB PO SCH (08:45)
--- NOTE | 2016-10-25 11:29 | PN ---
Date/Time of Note Date/Time of Note DATE: 10/25/16 TIME: 11:12 Assessment/Plan VTE Prophylaxis VTE Prophylaxis Intervention: LMWH (treatement dose ) Lines/Catheters Urinary Cath still in place: No Assessment/Plan Assessment/Plan 81-year-old female with: 1. Acute bilateral cerebellar CVA, symptomatic with vertigo and nausea, also found to be in paroxysmal atrial fibrillation. Still with Vertigo. Continue blood pressure control with Cozaar and Norvasc added for better BP control Anticoagulation with Lovenox 2D echocardiogram done results pending Neurology consult pending PT, OT, ST pending. 2. Paroxysmal Atrial fibrillation, with frequent pauses so [employer] disocntinued and patient back in SR this AM Continue Lovenox for anticoagulation with plan to switch to Xarelto or Eliquis prior to discharge if 2D echocardiogram allows Telemetry monitoring Decreased Synthroid dosing. 3. Mildly elevated Troponins, likely trop leak with episode of A fib with RVR and acute CVA. Trending down, on ASA and anticoagulated already Cardiology consult pending 2D echo already done . 4. Hypothyroidism: TFTs showing mild suppression of TSH, decreased Synthroid dosing to 25 mcg daily. 5. Hyperlipidemia: Follow-up on fasting lipid panel, continue statin therapy especially in setting of acute CVA 6. Hypertension: Continue Cozaar and Norvasc added. Hydralazine prn. Prophylaxis: Patient on full anticoagulation in setting of A. fib and acute CVA , Pepcid for GI prophylaxis Disposition: Neurology and Cardiology consult pending. Heart rate control, 2D echocardiogram, PT/OT/ST evaluation Subjective 24 Hr Interval Summary Free Text/Dictation Patient feels a little better today, no chest pain or SOB Still with dizziness and vertigo and cannot stand up Poor appetite due to dizziness per patient. Neurology and Cardiology consults pending. Exam/Review of Systems Vital Signs Vitals Vital Signs Date Time Temp Pulse Resp B/P Pulse Ox O2 Delivery O2 Flow Rate FiO2 10/25/16 08:32 Nasal Cannula 2.0 10/25/16 08:32 78 10/25/16 07:54 99.4 20 184/81 100 Intake and Output 10/24/16 10/24/16 10/25/16 15:00 23:00 07:00 Intake Total 490 ml 920 ml 300 ml Output Total 2000 ml 800 ml Balance 490 ml -1080 ml -500 ml Exam Constitutional: alert, frail, oriented Head: atraumatic Eyes: EOMI, nl conjunctiva, nl lids Neck: supple Respiratory: clear to auscultation, normal air movement Cardiovascular: nl pulses, other (back in SR), regular rate and rhythm Gastrointestinal: non-tender, soft Musculoskeletal: nl extremities to inspection Extremities: normal pulses, other (no edema, clubbing or cyanosis ) Neurological: DENTAL PRACTITIONER II-XII intact, nl mental status, nl speech, nl strength, other (vertigo and imbalance ) Results Result Diagram: 10/25/16 0608 10/25/16 0608 Results 24 hrs Laboratory Tests Test 10/24/16 15:45 10/24/16 22:54 10/25/16 06:08 10/25/16 06:10 Creatine Kinase 159 189 141 Creatine Kinase Index 2.4 1.8 1.8 Creatinine Kinase MB (Mass) 3.88 H 3.43 H 2.48 H Troponin I 0.218 *H 0.197 *H 0.151 *H White Blood Count 8.3 Red Blood Count 4.03 L Hemoglobin 12.8 Hematocrit 39.2 Mean Corpuscular Volume 97.3 Mean Corpuscular Hemoglobin 31.8 Mean Corpuscular Hemoglobin Concent 32.7 Red Cell Distribution Width 11.9 Platelet Count 165 Mean Platelet Volume 10.9 H Neutrophils % 68.7 Lymphocytes % 17.6 Monocytes % 11.9 H Eosinophils % 0.6 Basophils % 0.7 Nucleated Red Blood Cells % 0.0 Neutrophils # 5.7 Lymphocytes # 1.5 Monocytes # 1.0 H Eosinophils # 0.1 Basophils # 0.1 Nucleated Red Blood Cells # 0.0 Sodium Level 144 Potassium Level 4.4 Chloride Level 103 Carbon Dioxide Level 30 Anion Gap 15 Blood Urea Nitrogen 14 Creatinine 0.68 Glucose Level 108 Calcium Level 9.0 Total Bilirubin 0.5 Direct Bilirubin 0.00 Indirect Bilirubin 0.5 Aspartate Amino Transf (AST/SGOT) 39 Alanine Aminotransferase (ALT/SGPT) 26 Alkaline Phosphatase 86 Total Protein 6.8 Albumin 3.8 Globulin 3.00 Albumin/Globulin Ratio 1.26 Phosphorus Level 2.8 Magnesium Level 1.9 Medications Medications Current Medications Ondansetron HCl (Zofran Inj) 4 mg Q6H PRN IV NAUSEA AND/OR VOMITING; Start at 19:00 Aspirin (Aspirin) 81 mg DAILY PO Last administered on 10/25/16 08:28; Admin Dose 81 MG; Start 10/24/16 at 09:00 Acetaminophen (Tylenol Tab) 650 mg Q6H PRN PO PAIN LEVEL 1-3 OR FEVER Last administered on 10/23/16 23:27; Admin Dose 650 MG; Start 10/23/16 at 19:00 Acetaminophen/ Hydrocodone Bitart ([place] (5/325)) 1 tab Q6H PRN PO PAIN LEVEL 4 -6; Start 10/23/16 at 19:00 Morphine Sulfate (morphine) 2 mg Q4H PRN IV PAIN LEVEL 7-10; Start 10/23/16 at 19:00 Docusate Sodium (Colace) 100 mg Q12H PRN PO CONSTIPATION; Start 10/23/16 at 19: 00 Magnesium Hydroxide (Milk Of Mag) 30 ml DAILY PRN PO CONSTIPATION; Start at 19:00 Bisacodyl (Dulcolax Supp) 10 mg DAILY PRN OR CONSTIPATION; Start 10/23/16 at 19 :00 Famotidine (Pepcid) 20 mg DAILY PO Last administered on 10/25/16 08:28; Admin Dose 20 MG; Start 10/23/16 at 21:00 Meclizine HCl (Antivert) 25 mg TID PRN PO vertigo Last administered on 06:05; Admin Dose 25 MG; Start 10/23/16 at 19:00 Losartan Potassium 100 mg 100 mg DAILY PO Last administered on 10/25/16 08:45 ; Admin Dose 100 MG; Start 10/24/16 at 09:00 Potassium Chloride/Sodium Chloride (KCl/NS) 1,020 ml @ 80 mls/hr [id number] IV Last administered on 10/25/16 03:53; Admin Dose 80 MLS/HR; Start 10/24/16 at 11 :00 Enoxaparin Sodium (Lovenox) 55 mg Q12 SC Last administered on 10/25/16 08:31; Admin Dose 55 MG; Start 10/24/16 at 21:00 Atorvastatin Calcium (Lipitor) 20 mg HS PO Last administered on 10/24/16 21:30 ; Admin Dose 20 MG; Start 10/24/16 at 21:00 Hydralazine HCl (Apresoline) 10 mg Q8H PRN IV SBP GREATER THAN 180 Last administered on 10/25/16t 08:29; Admin Dose 10 MG; Start 10/24/16 at 15:00 FRANKLIN PADGETT Oct 25, 2016 11:22
[2016-10-25] MEDS ORDERED: MAGNESIUM SULFATE 1 GM/D5W 100 ML IVPB ONE (12:30)
[2016-10-25] MEDS: ATORVASTATIN 20 MG TAB PO SCH (20:45)
[2016-10-25] MEDS: AMIODARONE 200 MG TAB PO SCH (20:45)
[2016-10-25] MEDS ORDERED: AMLODIPINE 10 MG TAB PO SCH (21:00)
--- NOTE | 2016-10-25 21:20 | CONS ---
Date/Time of Note Date/Time of Note DATE: 10/25/16 TIME: 21:12 Assessment/Plan Assessment/Plan Additional Assessment/Plan Tachybradycardia syndrome with pauses Paroxysmal atrial fibrillation Acute CVA Hypertension Preserved ejection fraction echocardiogram 2014 -Patient with evidence of pauses on telemetry. She is currently in sinus rhythm. Agree with holding AV magdalene blockers at the current time. Amiodarone to help maintain in sinus rhythm. Given her episodes of rapid ventricular rates , she will need heart rate control medications and given her pauses and bradycardia, this will inhibit management. She will likely need a pacemaker. Will discuss with her primary roll former Dr. Purcell. Otherwise continue acute CVA care. Continue telemetry monitoring. Consultation Date/Type/Reason Admit Date/Time Oct 23, 2016 at 14:30 Type of Consultation: cv Reason for Consultation Arrhythmia Hx of Present Illness This is with past medical history hypertension, thyroid dysfunction who presents with nausea, dizziness and not feeling well for 1 day prior to admission. Patient underwent found to have acute CVA. Patient also in atrial fibrillation. Patient was noted on telemetry to have multiple pauses, longest being 8 seconds this reason cardiology consultation was requested. Patient does get episodes of palpitations at times she denies chest pain, shortness of breath. Had intermittent dizziness in the past and a possible near syncopal episode. Denies any chest pain time, abdominal pain, nausea fevers or chills. She does complain of some difficulty with her speech and her left arm weakness 12 point review of systems was performed with all pertinent positives and negatives mentioned and all else is negative Respiratory: no complaints Cardiovascular: no complaints Gastrointestinal: no complaints Genitourinary: no complaints Musculoskeletal: no complaints Skin: no complaints Neurologic: dizziness Psychological: no complaints Past Medical History Thyroid dysfunction Medical History: hypertension Past Surgical History Past Surgical Hx: no surgical history Family History Significant Family History: no pertinent family hx Social History Alcohol Use: none Smoking Status: Never smoker Drug Use: none Other Social History Lives at home Exam/Review of Systems Vital Signs Vitals Vital Signs Date Time Temp Pulse Resp B/P Pulse Ox O2 Delivery O2 Flow Rate FiO2 10/25/16 20:22 79 10/25/16 19:57 97.2 18 157/72 98 10/25/16 08:32 Nasal Cannula 2.0 Intake and Output 10/24/16 10/24/16 10/25/16 15:00 23:00 07:00 Intake Total 490 ml 920 ml 300 ml Output Total 2000 ml 800 ml Balance 490 ml -1080 ml -500 ml Exam Following commands, able to give history, some dysarthria, no apparent distress , son at bedside Constitutional: alert, oriented Head: normocephalic Neck: supple Respiratory: clear to auscultation, normal air movement Cardiovascular: other (S1-S2 heard), regular rate and rhythm Gastrointestinal: bowel sounds, non-tender, other (No guarding), soft Extremities: other (No edema) Results Result Diagram: 10/25/1660710/25/16607 Results 24 hrs Laboratory Tests Test 10/24/16 22:54 10/25/16 06:08 10/25/16 06:10 Creatine Kinase 189 141 Creatine Kinase Index 1.8 1.8 Creatinine Kinase MB (Mass) 3.43 H 2.48 H Troponin I 0.197 *H 0.151 *H White Blood Count 8.3 Red Blood Count 4.03 L Hemoglobin 12.8 Hematocrit 39.2 Mean Corpuscular Volume 97.3 Mean Corpuscular Hemoglobin 31.8 Mean Corpuscular Hemoglobin Concent 32.7 Red Cell Distribution Width 11.9 Platelet Count 165 Mean Platelet Volume 10.9 H Neutrophils % 68.7 Lymphocytes % 17.6 Monocytes % 11.9 H Eosinophils % 0.6 Basophils % 0.7 Nucleated Red Blood Cells % 0.0 Neutrophils # 5.7 Lymphocytes # 1.5 Monocytes # 1.0 H Eosinophils # 0.1 Basophils # 0.1 Nucleated Red Blood Cells # 0.0 Sodium Level 144 Potassium Level 4.4 Chloride Level 103 Carbon Dioxide Level 30 Anion Gap 15 Blood Urea Nitrogen 14 Creatinine 0.68 Glucose Level 108 Calcium Level 9.0 Total Bilirubin 0.5 Direct Bilirubin 0.00 Indirect Bilirubin 0.5 Aspartate Amino Transf (AST/SGOT) 39 Alanine Aminotransferase (ALT/SGPT) 26 Alkaline Phosphatase 86 Total Protein 6.8 Albumin 3.8 Globulin 3.00 Albumin/Globulin Ratio 1.26 Phosphorus Level 2.8 Magnesium Level 1.9 Medications Medications Current Medications Ondansetron HCl (Zofran Inj) 4 mg Q6H PRN IV NAUSEA AND/OR VOMITING; Start at 19:00 Aspirin (Aspirin) 81 mg DAILY PO Last administered on 10/25/16t 08:28; Admin Dose 81 MG; Start 10/24/16 at 09:00 Acetaminophen (Tylenol Tab) 650 mg Q6H PRN PO PAIN LEVEL 1-3 OR FEVER Last administered on 10/23/16 23:27; Admin Dose 650 MG; Start 10/23/16 at 19:00 Acetaminophen/ Hydrocodone Bitart ([place] (5/325)) 1 tab Q6H PRN PO PAIN LEVEL 4 -6; Start 10/23/16 at 19:00 Morphine Sulfate (morphine) 2 mg Q4H PRN IV PAIN LEVEL 7-10; Start 10/23/16 at 19:00 Docusate Sodium (Colace) 100 mg Q12H PRN PO CONSTIPATION; Start 10/23/16 at 19: 00 Magnesium Hydroxide (Milk Of Mag) 30 ml DAILY PRN PO CONSTIPATION; Start at 19:00 Bisacodyl (Dulcolax Supp) 10 mg DAILY PRN OR CONSTIPATION; Start 10/23/16 at 19 :00 Famotidine (Pepcid) 20 mg DAILY PO Last administered on 10/25/16 08:28; Admin Dose 20 MG; Start 10/23/16 at 21:00 Meclizine HCl (Antivert) 25 mg TID PRN PO vertigo Last administered on 06:05; Admin Dose 25 MG; Start 10/23/16 at 19:00 Losartan Potassium 100 mg 100 mg DAILY PO Last administered on 10/25/16 08:45 ; Admin Dose 100 MG; Start 10/24/16 at 09:00 Potassium Chloride/Sodium Chloride (KCl/NS) 1,020 ml @ 80 mls/hr [id number] IV Last administered on 10/25/16 17:44; Admin Dose 80 MLS/HR; Start 10/24/16 at 11 :00 Enoxaparin Sodium (Lovenox) 55 mg Q12 SC Last administered on 10/25/16 20:58; Admin Dose 55 MG; Start 10/24/16 at 21:00 Atorvastatin Calcium (Lipitor) 20 mg HS PO Last administered on 10/25/16 20:45 ; Admin Dose 20 MG; Start 10/24/16 at 21:00 Hydralazine HCl (Apresoline) 10 mg Q8H PRN IV SBP GREATER THAN 180 Last administered on 10/25/16 17:44; Admin Dose 10 MG; Start 10/24/16 at 15:00 Amlodipine Besylate (Norvasc) 10 mg QHS PO Last administered on 10/25/16 20:44 ; Admin Dose 10 MG; Start 10/25/16 at 21:00 Amiodarone HCl (Cordarone) 200 mg BID PO Last administered on 10/25/16 20:45; Admin Dose 200 MG; Start 10/25/16 at 21:00 Procedures Procedures ECG done October 23 demonstrates sinus rhythm at 72 bpm, left ventricular hypertrophy, nonspecific ST abnormalities Telemetry strips reviewed demonstrates a pause 8.8 seconds noted on October 24 at 1443 Venu Russo DO Oct 25, 2016 21:20
--- NOTE | 2016-10-25 21:51 | RADRPT ---
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 Physician: ALMA ROSA PADGETT Quality: Adequate Procedures: Transthoracic echocardiogram with complete 2D, M-Mode, and doppler examination. Indications: Acute CVA. 2D/M Mode Doppler Measurement Value Normal Ranges Measurement Value Normal Ranges LVIDd 2D 3.9 3.5 - 5.6 cm AV Peak Julito 2.1 m/sec LVIDs 2D 2.5 2.1 - 4.1 cm AV Peak PG 18.0 mmHg FS 2D 37.4 % AI Peak PG 73.0 mmHg LVPWd 2D 1.5 0.6 - 1.1 cm AI Peak Julito 4.3 m/sec IVSd 2D 1.5 0.6 - 1.1 cm AI PHT 460.0 msec IVS/LVPW 2D 1.0 LVOT Peak Julito 1.2 m/sec AoR Diam 2D 2.9 2.0 - 3.7 cm LVOT Peak PG 6.0 mmHg LA/Ao 2D 1 0 - 1 MV E Peak Julito 1.1 m/sec EDV 2D 60.7 cm3 MR Peak PG 76.0 mmHg ESV 2D 14.9 cm3 MR Peak Julito 4.4 m/sec LA Dimen 2D 4.2 2.3 - 4.0 cm TR Peak Julito 3.2 m/sec TR Peak PG 42.0 mmHg RVSP 45.0 mmHg Findings Left Ventricle: Normal left ventricular systolic function. Normal left ventricular cavity size. Moderate concentric left ventricular hypertrophy. Ejection fraction is visually estimated at 65 %. Abnormal Diastolic Function. Right Ventricle: Normal right ventricular size. Normal right ventricular systolic function. Left Atrium: There is mild enlargement of left atrium. Right Atrium: The right atrium is normal in size. Mitral Valve: Mild mitral leaflet calcification. Mild mitral annular calcification. Mild mitral valve regurgitation. Aortic Valve: Aortic sclerosis without stenosis. Mild aortic valve regurgitation. Tricuspid Valve: Normal appearance of the tricuspid valve. Estimated peak PA systolic pressure 45 mmHg. There is mild tricuspid regurgitation. Pulmonic Valve: Pulmonic valve not well visualized. There is mild pulmonic regurgitation. Pericardium: Normal pericardium with no significant pericardial effusion. Aorta: Normal aortic root. IVC: Normal size and normal respiratory collapse consistent with normal right atrial pressure. Conclusions Normal left ventricular systolic function. Normal left ventricular cavity size. Moderate concentric left ventricular hypertrophy. Ejection fraction is visually estimated at 65 %. Abnormal Diastolic Function. Normal right ventricular size. Normal right ventricular systolic function. There is mild enlargement of left atrium. The right atrium is normal in size. Mild mitral valve regurgitation. Aortic sclerosis without stenosis. Mild aortic valve regurgitation. Estimated peak PA systolic pressure 45 mmHg. There is mild tricuspid regurgitation. Normal pericardium with no significant pericardial effusion. Electronically Signed By: Venu Russo 25-Oct-2016 21:51:12 -0700 Patient Name: NGUYEN MERCHANT Study Date: 24-Oct-[id number]
[2016-10-26] VITALS (12 sets, daily range): BP systolic 123–154; BP diastolic 64–89; PULSE 61–157; RESP 17–20
[2016-10-26] MEDS: LEVOTHYROXINE 25 MCG TAB PO SCH (05:58)
[2016-10-26] MEDS: POTASSIUM CHLORIDE 40 MEQ in SOD CHLORIDE 0.9% 1,000 ML IV SCH (06:22)
[2016-10-26 06:46] LABS: CALCIUM 9.2 mg/dl (8.4-10.2); CREATININE 0.68 mg/dl (0.44-1.00); POTASSIUM 4.4 mmol/L (3.5-5.1)
[2016-10-26] MEDS: AMIODARONE 200 MG TAB PO SCH ×2 (09:09→20:20)
[2016-10-26] MEDS: ASPIRIN 81 MG TAB PO SCH (09:09)
[2016-10-26] MEDS: FAMOTIDINE 20 MG TAB PO SCH (09:10)
[2016-10-26] MEDS: LOSARTAN 50 MG TAB PO SCH (09:10)
[2016-10-26] MEDS: ENOXAPARIN 60 MG/0.6 ML SYG SC SCH ×2 (09:18→20:21)
--- NOTE | 2016-10-26 11:29 | PN ---
Date/Time of Note Date/Time of Note DATE: 10/26/16 TIME: 11:02 Assessment/Plan VTE Prophylaxis VTE Prophylaxis Intervention: LMWH (Treatment) Lines/Catheters Urinary Cath still in place: No Assessment/Plan Assessment/Plan 81-year-old female with: 1. Acute bilateral cerebellar CVA, symptomatic with vertigo and nausea, also found to be in paroxysmal atrial fibrillation. Still with Vertigo. Continue blood pressure control with Cozaar and Norvasc added for better BP control Anticoagulation with Lovenox with plans to switch to Eliquis versus Xarelto if no further intervention to be done 2D echocardiogram stable Neurology consult pending PT, OT, ST pending. 2. Paroxysmal Atrial fibrillation, with frequent pauses so Bblockers discontinued and patient back and forth sinus rhythm and A. fib overnight but remains rate controlled most of the time. Patient now on amiodarone, ? May need a PPM Continue Lovenox for anticoagulation with plan to switch to Xarelto or Eliquis prior to discharge. Telemetry monitoring Decreased Synthroid dosing. 3. Mildly elevated Troponins, likely trop leak with episode of A fib with RVR and acute CVA. Trending down, on ASA and anticoagulated already and started on amiodarone Patient also noted to have a long pause 2 days ago therefore all beta-blockers have been discontinued. Cardiology eval pending for decision regarding possibly needing a PPM. 4. Hypothyroidism: TFTs showing mild suppression of TSH, decreased Synthroid dosing to 25 mcg daily. 5. Hyperlipidemia: Continue statin therapy especially in setting of acute CVA 6. Hypertension: Continue Cozaar and Norvasc added. Hydralazine prn. Prophylaxis: Patient on full anticoagulation in setting of A. fib and acute CVA , Pepcid for GI prophylaxis Disposition: Neurology and Cardiology following. Heart rate control, PT/OT/ST evaluation Subjective 24 Hr Interval Summary Free Text/Dictation Patient feels a little better, she has urinated 3 and did not require Turner catheter overnight. Still going in and out of A. fib, on anticoagulation with Lovenox given recent CVA No further episode of pauses seen on telemetry Patient still symptomatic with vertigo and dizziness Exam/Review of Systems Vital Signs Vitals Vital Signs Date Time Temp Pulse Resp B/P Pulse Ox O2 Delivery O2 Flow Rate FiO2 10/26/16 09:27 Nasal Cannula 2.0 10/26/16 09:26 98.6 10/26/16 08:15 129 10/26/16 07:08 20 142/89 100 Intake and Output 10/25/16 10/25/16 10/26/16 15:00 23:00 07:00 Intake Total 1000 ml 420 ml Output Total 350 ml 900 ml Balance 650 ml -480 ml Exam Constitutional: alert, frail, oriented (x3) Respiratory: clear to auscultation, normal air movement Cardiovascular: nl pulses, other (In and out of atrial fibrillation), regular rate and rhythm Gastrointestinal: non-tender, soft Musculoskeletal: nl extremities to inspection, other (No edema, clubbing or cyanosis) Extremities: normal pulses Neurological: ED TECH II-XII intact, nl mental status, nl speech, nl strength, other (Vertigo and gait disturbance) Results Result Diagram: 10/25/16 0608 10/26/16 0538 Results 24 hrs Laboratory Tests Test 10/26/16 05:38 Sodium Level 145 H Potassium Level 4.4 Chloride Level 104 Carbon Dioxide Level 28 Anion Gap 17 H Blood Urea Nitrogen 12 Creatinine 0.68 Glucose Level 111 Calcium Level 9.2 Medications Medications Current Medications Ondansetron HCl (Zofran Inj) 4 mg Q6H PRN IV NAUSEA AND/OR VOMITING; Start at 19:00 Aspirin (Aspirin) 81 mg DAILY PO Last administered on 10/26/16 09:09; Admin Dose 81 MG; Start 10/24/16 at 09:00 Acetaminophen (Tylenol Tab) 650 mg Q6H PRN PO PAIN LEVEL 1-3 OR FEVER Last administered on 10/23/16 23:27; Admin Dose 650 MG; Start 10/23/16 at 19:00 Acetaminophen/ Hydrocodone Bitart ([place] (5/325)) 1 tab Q6H PRN PO PAIN LEVEL 4 -6; Start 10/23/16 at 19:00 Morphine Sulfate (morphine) 2 mg Q4H PRN IV PAIN LEVEL 7-10; Start 10/23/16 at 19:00 Docusate Sodium (Colace) 100 mg Q12H PRN PO CONSTIPATION; Start 10/23/16 at 19: 00 Magnesium Hydroxide (Milk Of Mag) 30 ml DAILY PRN PO CONSTIPATION; Start at 19:00 Bisacodyl (Dulcolax Supp) 10 mg DAILY PRN [place] CONSTIPATION; Start 10/23/16 at 19 :00 Famotidine (Pepcid) 20 mg DAILY PO Last administered on 10/26/16 09:10; Admin Dose 20 MG; Start 10/23/16 at 21:00 Meclizine HCl (Antivert) 25 mg TID PRN PO vertigo Last administered on 06:05; Admin Dose 25 MG; Start 10/23/16 at 19:00 Losartan Potassium 100 mg 100 mg DAILY PO Last administered on 10/26/16 09:10 ; Admin Dose 100 MG; Start 10/24/16 at 09:00 Potassium Chloride/Sodium Chloride (KCl/NS) 1,020 ml @ 80 mls/hr [id number] IV Last administered on 10/26/16 06:22; Admin Dose 80 MLS/HR; Start 10/24/16 at 11 :00 Enoxaparin Sodium (Lovenox) 55 mg Q12 SC Last administered on 10/26/16 09:18; Admin Dose 55 MG; Start 10/24/16 at 21:00 Atorvastatin Calcium (Lipitor) 20 mg HS PO Last administered on 10/25/16 20:45 ; Admin Dose 20 MG; Start 10/24/16 at 21:00 Hydralazine HCl (Apresoline) 10 mg Q8H PRN IV SBP GREATER THAN 180 Last administered on 10/25/16 17:44; Admin Dose 10 MG; Start 10/24/16 at 15:00 Amlodipine Besylate (Norvasc) 10 mg QHS PO Last administered on 10/25/16 20:44 ; Admin Dose 10 MG; Start 10/25/16 at 21:00 Amiodarone HCl (Cordarone) 200 mg BID PO Last administered on 10/26/16 09:09; Admin Dose 200 MG; Start 10/25/16 at 21:00 Procedures Procedures Echocardiogram Report Patient Name: NGUYEN MERCHANT Gender: Female Date: 1935 Study Date: 24-Oct-2016 Merchandise Handler: Jose Armando [facility] Location: 555 Ref. Physician: ALMA ROSA PADGETT Quality: Adequate Procedures: Transthoracic echocardiogram with complete 2D, M-Mode, and doppler examination. Indications: Acute CVA. 2D/M Mode Doppler Measurement Value Normal Ranges Measurement Value Normal Ranges LVIDd 2D 3.9 3.5 - 5.6 cm AV Peak Julito 2.1 m/sec LVIDs 2D 2.5 2.1 - 4.1 cm AV Peak PG 18.0 mmHg FS 2D 37.4 % AI Peak PG 73.0 mmHg LVPWd 2D 1.5 0.6 - 1.1 cm AI Peak Julito 4.3 m/sec IVSd 2D 1.5 0.6 - 1.1 cm AI PHT 460.0 msec IVS/LVPW 2D 1.0 LVOT Peak Julito 1.2 m/sec AoR Diam 2D 2.9 2.0 - 3.7 cm LVOT Peak PG 6.0 mmHg LA/Ao 2D 1 0 - 1 MV E Peak Julito 1.1 m/sec EDV 2D 60.7 cm3 MR Peak PG 76.0 mmHg ESV 2D 14.9 cm3 MR Peak Julito 4.4 m/sec LA Dimen 2D 4.2 2.3 - 4.0 cm TR Peak Julito 3.2 m/sec TR Peak PG 42.0 mmHg RVSP 45.0 mmHg Findings Left Ventricle: Normal left ventricular systolic function. Normal left ventricular cavity size. Moderate concentric left ventricular hypertrophy. Ejection fraction is visually estimated at 65 %. Abnormal Diastolic Function. Right Ventricle: Normal right ventricular size. Normal right ventricular systolic function. Left Atrium: There is mild enlargement of left atrium. Right Atrium: The right atrium is normal in size. Mitral Valve: Mild mitral leaflet calcification. Mild mitral annular calcification. Mild mitral valve regurgitation. Aortic Valve: Aortic sclerosis without stenosis. Mild aortic valve regurgitation. Tricuspid Valve: Normal appearance of the tricuspid valve. Estimated peak PA systolic pressure 45 mmHg. There is mild tricuspid regurgitation. Pulmonic Valve: Pulmonic valve not well visualized. There is mild pulmonic regurgitation. Pericardium: Normal pericardium with no significant pericardial effusion. Aorta: Normal aortic root. IVC: Normal size and normal respiratory collapse consistent with normal right atrial pressure. Conclusions Normal left ventricular systolic function. Normal left ventricular cavity size. Moderate concentric left ventricular hypertrophy. Ejection fraction is visually estimated at 65 %. Abnormal Diastolic Function. Normal right ventricular size. Normal right ventricular systolic function. There is mild enlargement of left atrium. The right atrium is normal in size. Mild mitral valve regurgitation. Aortic sclerosis without stenosis. Mild aortic valve regurgitation. Estimated peak PA systolic pressure 45 mmHg. There is mild tricuspid regurgitation. Normal pericardium with no significant pericardial effusion. Electronically Signed By: Veun Russo 25-Oct-2016 21:51:12 -0700 FRANKLIN PADGETT Oct 26, 2016 11:19
[2016-10-26 13:29] LABS: MAGNESIUM 1.8 mg/dl (1.7-2.5); PHOSPHORUS 2.9 mg/dl (2.5-4.9)
[2016-10-26] MEDS: DEXTROSE 5%-0.45% NACL 1,000 ML IV SCH (17:25)
--- NOTE | 2016-10-26 18:20 | PN ---
Date/Time of Note Date/Time of Note DATE: 10/26/16 TIME: 18:12 Assessment/Plan VTE Prophylaxis VTE Prophylaxis Intervention: LMWH Lines/Catheters IV C[facility]ter Type (from [facility]): Saline Lock Urinary Cath still in place: No Assessment/Plan Chief Complaint/Hosp Course 1. Acute bilateral cerebellar CVA, : allow for permissive HTN. Anticoagulation with Lovenox with plans to switch to Eliquis upon discharge 2D echocardiogram stable 2. Paroxysmal Atrial fibrillation, with sick sinus syndrome and tachy/raissa with > 8 second pauses: PPM was recommended to pt and family. son states that her regular crossbar switch adjuster also previously recommended her that and now they agree to have it. R/B/A D/W and son. Risks including but not limited to risk of infection vascular complication bleeding complications IA stroke arrhythmia pneumothorax hemothorax , anesthesia related complication, perforation etc. discussed with 'pt and son and consent was obtained. Continue Lovenox for anticoagulation with plan to switch to Xarelto or Eliquis prior to discharge. Telemetry monitoring . 3. Mildly elevated Troponins, likely trop leak with episode of A fib with RVR and acute CVA. Trending down, cont medical therapy for now. 4. Hypothyroidism: defer to IM 5. Hyperlipidemia: Continue statin therapy especially in setting of acute CVA 6. Hypertension: Continue Cozaar and ALLOW for permissive HTN. Problems: Subjective 24 Hr Interval Summary Free Text/Dictation d/w staff and rhythm was reviewed. pt has converted back to Afib with RVR D/W SON pt has been intermittently confused per RN but much better at the moment. she denies any chest pain or pressure to me. she c/o palpitations. meds reviewed. OBJECTIVE: General: no acute distress HEENT: NC/AT. pupils are equal. round. NECK: NO JVD. no stridor. CV: irregularly irregular. . systolic murmur; no gallop or rubs. PULM: no wheezing or rhonchi. GI: SOFT, NT, ND, no rebound or guarding Extremity: trace B/L LE edema. no clubbing. neuro: awake and alert,. Psych: anxious but pleasant rectal: deferred Exam/Review of Systems Vital Signs Vitals Vital Signs Date Time Temp Pulse Resp B/P Pulse Ox O2 Delivery O2 Flow Rate FiO2 10/26/16 16:02 112 10/26/16 15:32 98.4 18 140/88 100 10/26/16 09:27 Nasal Cannula 2.0 Intake and Output 10/25/16 10/25/16 10/26/16 15:00 23:00 07:00 Intake Total 1000 ml 420 ml Output Total 350 ml 900 ml Balance 650 ml -480 ml Results Result Diagram: 10/25/16 0608 10/26/16 0538 Results 24 hrs Laboratory Tests Test 10/26/16 05:38 Sodium Level 145 H Potassium Level 4.4 Chloride Level 104 Carbon Dioxide Level 28 Anion Gap 17 H Blood Urea Nitrogen 12 Creatinine 0.68 Glucose Level 111 Calcium Level 9.2 Phosphorus Level 2.9 Magnesium Level 1.8 Medications Medications Current Medications Ondansetron HCl (Zofran Inj) 4 mg Q6H PRN IV NAUSEA AND/OR VOMITING; Start at 19:00 Aspirin (Aspirin) 81 mg DAILY PO Last administered on 10/26/16 09:09; Admin Dose 81 MG; Start 10/24/16 at 09:00 Acetaminophen (Tylenol Tab) 650 mg Q6H PRN PO PAIN LEVEL 1-3 OR FEVER Last administered on 10/23/16 23:27; Admin Dose 650 MG; Start 10/23/16 at 19:00 Acetaminophen/ Hydrocodone Bitart ([place] (5/325)) 1 tab Q6H PRN PO PAIN LEVEL 4 -6; Start 10/23/16 at 19:00 Morphine Sulfate (morphine) 2 mg Q4H PRN IV PAIN LEVEL 7-10; Start 10/23/16 at 19:00 Docusate Sodium (Colace) 100 mg Q12H PRN PO CONSTIPATION; Start 10/23/16 at 19: 00 Magnesium Hydroxide (Milk Of Mag) 30 ml DAILY PRN PO CONSTIPATION; Start at 19:00 Bisacodyl (Dulcolax Supp) 10 mg DAILY PRN [place] CONSTIPATION; Start 10/23/16 at 19 :00 Famotidine (Pepcid) 20 mg DAILY PO Last administered on 10/26/16 09:10; Admin Dose 20 MG; Start 10/23/16 at 21:00 Meclizine HCl (Antivert) 25 mg TID PRN PO vertigo Last administered on 06:05; Admin Dose 25 MG; Start 10/23/16 at 19:00 Losartan Potassium (Cozaar) 100 mg DAILY PO Last administered on 10/26/16 09: 10; Admin Dose 100 MG; Start 10/24/16 at 09:00 Enoxaparin Sodium (Lovenox) 55 mg Q12 SC Last administered on 10/26/16 09:18; Admin Dose 55 MG; Start 10/24/16 at 21:00; Stop 10/26/16 at 23:00 Atorvastatin Calcium (Lipitor) 20 mg HS PO Last administered on 10/25/16 20:45 ; Admin Dose 20 MG; Start 10/24/16 at 21:00 Hydralazine HCl (Apresoline) 10 mg Q8H PRN IV SBP GREATER THAN 180 Last administered on 10/25/16 17:44; Admin Dose 10 MG; Start 10/24/16 at 15:00 Amlodipine Besylate (Norvasc) 10 mg QHS PO Last administered on 10/25/16 20:44 ; Admin Dose 10 MG; Start 10/25/16 at 21:00 Amiodarone HCl 200 mg 200 mg BID PO Last administered on 10/26/16 09:09; Admin Dose 200 MG; Start 10/25/16 at 21:00 Dextrose/Sodium Chloride (D5-1/2ns) 1,000 ml @ 125 mls/hr Q8H IV Last administered on 10/26/16 17:25; Admin Dose 125 MLS/HR; Start 10/26/16 at 17:00 KAYLA PRINGLE MD Oct 26, 2016 18:20
[2016-10-26] MEDS: ATORVASTATIN 20 MG TAB PO SCH (20:20)
[2016-10-27] VITALS (25 sets, daily range): BP systolic 136–210; BP diastolic 61–96; PULSE 60–136; RESP 16–25
[2016-10-27] MEDS: DEXTROSE 5%-0.45% NACL 1,000 ML IV SCH ×2 (00:50→09:00)
[2016-10-27] MEDS: LEVOTHYROXINE 25 MCG TAB PO SCH (07:25)
[2016-10-27 07:52] LABS: ADD SCAN DIFF NO; BASOPHIL # 0.1 10^3/ul (0.0-0.1); EOSINOPHILS # 0.3 10^3/ul (0.0-0.5); EOSINOPHILS % 3.5 % (0.0-7.0); HEMATOCRIT 41.1 % (37.0-47.0); HEMOGLOBIN 13.4 g/dl (12.0-16.0); LYMPHOCYTES # 1.6 10^3/ul (0.8-2.9); LYMPHOCYTES % 22.9 % (15.0-51.0); MEAN CORPUSCULAR HEMOGLOBIN 32.1 pg (29.0-33.0); MEAN CORPUSCULAR HGB CONC 32.6 g/dl (32.0-37.0); MEAN CORPUSCULAR VOLUME 98.6 fl (82.0-101.0); MEAN PLATELET VOLUME 10.5 fl (7.4-10.4); MONOCYTES % 13.4 % (0.0-11.0); NEUTROPHIL # 4.2 10^3/ul (1.6-7.5); NEUTROPHILS % 58.9 % (39.0-77.0); PLATELET COUNT 167 10^3/UL (140-415); RED BLOOD COUNT 4.17 10^6/ul (4.20-5.40); RED CELL DISTRIBUTION WIDTH 11.6 % (11.5-14.5); WHITE BLOOD COUNT 7.1 10^3/ul (4.8-10.8)
[2016-10-27 08:11] LABS: ALBUMIN 3.6 g/dl (3.3-4.9); ALBUMIN/GLOBULIN RATIO 0.92; BILIRUBIN,INDIRECT 1.2 mg/dl (0-1.1); BILIRUBIN,TOTAL 1.2 mg/dl (0.2-1.3); CREATININE 0.69 mg/dl (0.44-1.00); TOTAL PROTEIN 7.5 g/dl (6.1-8.1)
[2016-10-27] MEDS: LOSARTAN 50 MG TAB PO SCH (08:11)
[2016-10-27] MEDS: AMIODARONE 200 MG TAB PO SCH ×2 (08:11→20:58)
[2016-10-27] MEDS: ASPIRIN 81 MG TAB PO SCH (08:11)
[2016-10-27] MEDS: FAMOTIDINE 20 MG TAB PO SCH (08:11)
[2016-10-27 08:17] LABS: INR 1.02; PROTIME 13.4 Sec (12.2-14.2)
[2016-10-27] MEDS ORDERED: SOD CHLORIDE 0.9% 1,000 ML ONE (08:17)
[2016-10-27] MEDS ORDERED: IODIXANOL LOCM 50 ML BTL ONE (08:17)
[2016-10-27 08:22] LABS: MAGNESIUM 1.6 mg/dl (1.7-2.5)
--- NOTE | 2016-10-27 08:54 | PN ---
Date/Time of Note Date/Time of Note DATE: 10/27/16 TIME: 08:52 Assessment/Plan VTE Prophylaxis VTE Prophylaxis Intervention: LMWH Lines/Catheters IV [facility] Saline Lock Urinary Cath still in place: No Assessment/Plan Chief Complaint/Hosp Course 1. Acute bilateral cerebellar CVA, : allow for permissive HTN. s/p Anticoagulation with Lovenox with plans to switch to Eliquis upon discharge 2D echocardiogram stable 2. Paroxysmal Atrial fibrillation, with sick sinus syndrome and tachy/raissa with multiple and recurrent long pauses: PPM was recommended to pt and family. son states that her regular environmental property assessor also previously recommended her that and now they agree to have it. R/B/A D/W and son. Risks including but not limited to risk of infection vascular complication bleeding complications CA stroke arrhythmia pneumothorax hemothorax , anesthesia related complication, perforation etc. discussed with 'pt and son and consent was obtained. will start amiodarone drip. Telemetry monitoring . 3. Mildly elevated Troponins, likely trop leak with episode of A fib with RVR and acute CVA. Trending down, cont medical therapy for now. 4. Hypothyroidism: defer to IM 5. Hyperlipidemia: Continue statin therapy especially in setting of acute CVA 6. Hypertension: Continue Cozaar and ALLOW for permissive HTN. Problems: Subjective 24 Hr Interval Summary Free Text/Dictation d/w staff and rhythm was reviewed. pt has converted in and out of Afib with RVR with multiple more than 6 second pauses. D/W SON she denies any chest pain or pressure to me. she c/o palpitations. meds reviewed. OBJECTIVE: General: no acute distress HEENT: NC/AT. pupils are equal. round. NECK: NO JVD. no stridor. CV: irregularly irregular. . systolic murmur; no gallop or rubs. PULM: no wheezing or rhonchi. GI: SOFT, NT, ND, no rebound or guarding Extremity: trace B/L LE edema. no clubbing. neuro: awake and alert,. Psych: anxious but pleasant rectal: deferred Exam/Review of Systems Vital Signs Vitals Vital Signs Date Time Temp Pulse Resp B/P Pulse Ox O2 Delivery O2 Flow Rate FiO2 10/27/16 08:32 94 10/27/16 07:26 99.0 18 136/96 98 10/26/16 23:51 Nasal Cannula 2.0 Intake and Output 10/26/16 10/26/16 10/27/16 15:00 23:00 07:00 Intake Total 1625 ml 1375 ml Output Total 1200 ml Balance 425 ml 1375 ml Results Result Diagram: 10/27/16 0741 10/27/16 0741 Results 24 hrs Laboratory Tests Test 10/27/16 07:36 10/27/16 07:41 Prothrombin Time 13.4 Prothrombin Time Ratio 1.0 INR International Normalized Ratio 1.02 Phosphorus Level 4.0 Magnesium Level 1.6 L White Blood Count 7.1 Red Blood Count 4.17 L Hemoglobin 13.4 Hematocrit 41.1 Mean Corpuscular Volume 98.6 Mean Corpuscular Hemoglobin 32.1 Mean Corpuscular Hemoglobin Concent 32.6 Red Cell Distribution Width 11.6 Platelet Count 167 Mean Platelet Volume 10.5 H Neutrophils % 58.9 Lymphocytes % 22.9 Monocytes % 13.4 H Eosinophils % 3.5 Basophils % 1.0 Nucleated Red Blood Cells % 0.0 Neutrophils # 4.2 Lymphocytes # 1.6 Monocytes # 1.0 H Eosinophils # 0.3 Basophils # 0.1 Nucleated Red Blood Cells # 0.0 Sodium Level 146 H Potassium Level 4.0 Chloride Level 105 Carbon Dioxide Level 29 Anion Gap 16 Blood Urea Nitrogen 7 Creatinine 0.69 Glucose Level 119 Calcium Level 9.0 Total Bilirubin 1.2 Direct Bilirubin 0.00 Indirect Bilirubin 1.2 H Aspartate Amino Transf (AST/SGOT) 33 Alanine Aminotransferase (ALT/SGPT) 32 Alkaline Phosphatase 87 Total Protein 7.5 Albumin 3.6 Globulin 3.90 H Albumin/Globulin Ratio 0.92 Medications Medications Current Medications Ondansetron HCl (Zofran Inj) 4 mg Q6H PRN IV NAUSEA AND/OR VOMITING; Start at 19:00 Aspirin (Aspirin) 81 mg DAILY PO Last administered on 10/26/16 09:09; Admin Dose 81 MG; Start 10/24/16 at 09:00 Acetaminophen (Tylenol Tab) 650 mg Q6H PRN PO PAIN LEVEL 1-3 OR FEVER Last administered on 10/23/16 23:27; Admin Dose 650 MG; Start 10/23/16 at 19:00 Acetaminophen/ Hydrocodone Bitart ([place] (5/325)) 1 tab Q6H PRN PO PAIN LEVEL 4 -6; Start 10/23/16 at 19:00 Morphine Sulfate (morphine) 2 mg Q4H PRN IV PAIN LEVEL 7-10; Start 10/23/16 at 19:00 Docusate Sodium (Colace) 100 mg Q12H PRN PO CONSTIPATION; Start 10/23/16 at 19: 00 Magnesium Hydroxide (Milk Of Mag) 30 ml DAILY PRN PO CONSTIPATION; Start at 19:00 Bisacodyl (Dulcolax Supp) 10 mg DAILY PRN [place] CONSTIPATION; Start 10/23/16 at 19 :00 Famotidine (Pepcid) 20 mg DAILY PO Last administered on 10/26/16 09:10; Admin Dose 20 MG; Start 10/23/16 at 21:00 Meclizine HCl (Antivert) 25 mg TID PRN PO vertigo Last administered on 06:05; Admin Dose 25 MG; Start 10/23/16 at 19:00 Losartan Potassium (Cozaar) 100 mg DAILY PO Last administered on 10/26/16 09: 10; Admin Dose 100 MG; Start 10/24/16 at 09:00 Atorvastatin Calcium (Lipitor) 20 mg HS PO Last administered on 10/26/16 20:20 ; Admin Dose 20 MG; Start 10/24/16 at 21:00 Hydralazine HCl (Apresoline) 10 mg Q8H PRN IV SBP GREATER THAN 180 Last administered on 10/25/16 17:44; Admin Dose 10 MG; Start 10/24/16 at 15:00 Amiodarone HCl 200 mg 200 mg BID PO Last administered on 10/26/16 20:20; Admin Dose 200 MG; Start 10/25/16 at 21:00 Dextrose/Sodium Chloride (D5-1/2ns) 1,000 ml @ 125 mls/hr Q8H IV Last administered on 10/27/16 00:50; Admin Dose 125 MLS/HR; Start 10/26/16 at 17:00 KAYLA PRINGLE MD Oct 27, 2016 08:54
[2016-10-27] MEDS ORDERED: AMIODARONE 150MG/D5W BOLUS 100 ML IV ONE (09:00)
[2016-10-27] MEDS ORDERED: CEFAZOLIN 1 GM/50 ML (PMX) 50 ML IVPB ONE ×2 (09:08→09:46)
[2016-10-27] MEDS ORDERED: LIDOCAINE 2%/EPI MPF (SDV) 20 ML VIAL ONE (09:14)
[2016-10-27] MEDS ORDERED: PROPOFOL 20 ML ONE (09:35)
[2016-10-27] MEDS ORDERED: AMIODARONE 150 MG INJ ONE ×2 (09:39→09:55)
--- NOTE | 2016-10-27 10:50 | OPR ---
Date/Time of Note Date/Time of Note DATE: 10/27/16 TIME: 10:47 Operative Report Procedure Date: Oct 27, 2016 Operative\Procedure Findings Procedure performed: Permanent pacemaker placement using a [employer] MRI compatible device Left subclavian venogram and radiological interpretations Fluoroscopy and supervision Intracardiac electrocardiogram Indication: Sick sinus syndrome tachy/ raissa with P afib and RVR with episodes of up to 8 second pauses. Anesthesia: Per anesthesiologist Resident Care Director: Kayla Purcell MD Procedure in detail: Written informed consent was obtained after risks benefits and alternatives discussed with the patient and family in detail. Risks including but not limited to risk of infection, bleeding complications, anesthesia related complications, NC, CVA, perforation, pneumothorax hemothorax, etc discussed with pt and son in detail. Patient was brought into into the [facility] and placed in supine position. sedation was given. Left chest area was prepped and draped in regular sterile fashion. Left subclavian venogram was performed that showed patent subclavian vein but no cephalic vein was seen. Left subclavian vein was cannulated under direct fluoroscopy using a micropuncture needle and the venous flow was noted.. AC groove area was anesthetized using 1 % lidocaine with epi. A 3 cm incision was made in the AC groove area. Blunt dissection was carried out. . Micropuncture sheath was placed over the wire. Then the micropuncture sheath was removed and an 8 [place] sheath was placed over into the cephalic vein. Then, another J-wire into the sheet. The sheath was removed again and a new sheath was placed over the wire into the cephalic vein. RV lead was advanced under direct fluoroscopy and placed in the right ventricular low septum. Once a good position was found, threshold was checked which showed excellent threshold. It was screwed into place and threshold were checked again which showed good injury pattern and no diaphragmatic stimulation at 10 V an excellent thresholds. Then the sheath was peeled away. Another 8 [place] sheath was placed over the second wire into the cephalic vein into the subclavian vein. Right atrial lead was advanced under direct fluoroscopy and placed into the right atrial appendage. Once a good position was found it was screwed into place. Thresholds were checked again which showed excellent injury pattern and no diaphragmatic assimilation at 10 V and good thresholds. Right atrial lead sheath was removed. Both leads were tied down using 0 Ethibond suture. Pocket was irrigated with antibiotic solution. The lead was checked again which showed good thresholds. Then leads were connected into the device. Device was placed into the pocket and sutured using 0 Ethibond suture. Wound was closed with 1 layer of 2.0 Vicryl and 2 layers of 3.0 Vicryl. Steri- Strip was applied and pressure dressing was applied. Patient tolerated procedure well with no complication and was transferred to the recovery room in stable condition. Immediate complication: none Please see physical chart for details regarding pacemaker information and thresholds. Conclusions: Successful implantation of dual-chamber permanent pacemaker KAYLA PURCELL MD Oct 27, 2016 10:50
[2016-10-27] MEDS ORDERED: EPHEDrine SULFATE 50 MG/5 ML SYG IV PRN (11:00)
[2016-10-27] MEDS ORDERED: ACETAMINOPHEN 325 MG TAB PO PRN (11:00)
[2016-10-27] MEDS ORDERED: FENTAnyl 50 MCG/ML VIAL IV PRN (11:00)
[2016-10-27] MEDS ORDERED: hydrALAzine 20 MG INJ IV PRN (11:00)
[2016-10-27] MEDS ORDERED: AMIODARONE 900 MG in DEXTROSE 5% 482 ML IV SCH (11:00)
[2016-10-27] MEDS ORDERED: MEPERIDINE 25 MG INJ IV PRN (11:00)
[2016-10-27] MEDS ORDERED: morphine 2 MG INJ IV PRN ×2 (11:00)
[2016-10-27] MEDS ORDERED: DIPHENHYDRAMINE 50 MG INJ IV PRN (11:00)
[2016-10-27] MEDS ORDERED: OXYCODONE/ACETAMINOPHEN (5/325) TAB PO PRN (11:00)
[2016-10-27] MEDS ORDERED: LABETALOL HCL 20MG INJ IV PRN (11:00)
[2016-10-27] MEDS ORDERED: morphine (1 MG/ML) 10ML SYRINGE IV PRN (11:00)
[2016-10-27] MEDS ORDERED: ONDANSETRON 4 MG INJ IV PRN (11:00)
--- NOTE | 2016-10-27 11:51 | PN ---
Date/Time of Note Date/Time of Note DATE: 10/27/16 TIME: 11:44 Assessment/Plan VTE Prophylaxis VTE Prophylaxis Intervention: LMWH Lines/Catheters IV Catheter Type (from Nrs): Peripheral IV Urinary Cath still in place: No Assessment/Plan Assessment/Plan 81-year-old female with: 1. Acute bilateral cerebellar CVA, symptomatic with vertigo and nausea, also found to be in paroxysmal atrial fibrillation. Still with Vertigo. Continue blood pressure control with Cozaar and Norvasc added for better BP control Anticoagulation with Lovenox with plans to switch to Eliquis versus Xarelto if no further intervention to be done 2D echocardiogram stable Appreciate neurology. PT pending reorder. 2. Paroxysmal Atrial fibrillation, with frequent pauses so Bblockers discontinued and patient back and forth sinus rhythm and A. fib overnight but remains rate controlled most of the time. Patient now on amiodarone, status post PPM placement this morning. Continue Lovenox for anticoagulation with plan to switch to Eliquis in a.m. prior to discharge. Telemetry monitoring. 3. Mildly elevated Troponins, likely trop leak with episode of A fib with RVR and acute CVA. Trending down, on ASA and anticoagulated already and started on amiodarone Patient also noted to have a long pause 2 days ago therefore all beta-blockers have been discontinued. Status post PPM placement this morning 4. Hypothyroidism: TFTs showing mild suppression of TSH, decreased Synthroid dosing to 25 mcg daily. Will need repeat thyroid function testing in 4-6 weeks 5. Hyperlipidemia: Continue statin therapy especially in setting of acute CVA 6. Hypertension: Continue Cozaar and Norvasc added. Hydralazine prn. Prophylaxis: Patient on full anticoagulation in setting of A. fib and acute CVA , Pepcid for GI prophylaxis Disposition: Neurology and Cardiology following. Status post PPM placement this morning, PT reevaluation pending. Subjective 24 Hr Interval Summary Free Text/Dictation Patient remains stable, status post pacemaker placement this morning. PT eval today, sniff discharge planning in the next 24-48 hours She will need Eliquis for anticoagulation and will check with case management regarding eligibility Exam/Review of Systems Vital Signs Vitals Vital Signs Date Time Temp Pulse Resp B/P Pulse Ox O2 Delivery O2 Flow Rate FiO2 10/27/16 11:40 85 20 158/69 98 Room Air 10/27/16 10:45 98.2 10/26/16 23:51 2.0 Intake and Output 10/26/16 10/26/16 10/27/16 15:00 23:00 07:00 Intake Total 1625 ml 1375 ml Output Total 1200 ml Balance 425 ml 1375 ml Exam Constitutional: alert, oriented, well developed Respiratory: clear to auscultation, normal air movement Cardiovascular: nl pulses, other (Status post PPM placement this AM ), regular rate and rhythm Gastrointestinal: non-tender, soft Musculoskeletal: nl extremities to inspection, other (No edema clubbing or cyanosis) 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, nl mental status, nl speech, other ( Generalized weakness and vertigo and imbalance) Results Result Diagram: 10/27/16 0741 10/27/16 0741 Results 24 hrs Laboratory Tests Test 10/27/16 07:36 10/27/16 07:41 Prothrombin Time 13.4 Prothrombin Time Ratio 1.0 INR International Normalized Ratio 1.02 Phosphorus Level 4.0 Magnesium Level 1.6 L White Blood Count 7.1 Red Blood Count 4.17 L Hemoglobin 13.4 Hematocrit 41.1 Mean Corpuscular Volume 98.6 Mean Corpuscular Hemoglobin 32.1 Mean Corpuscular Hemoglobin Concent 32.6 Red Cell Distribution Width 11.6 Platelet Count 167 Mean Platelet Volume 10.5 H Neutrophils % 58.9 Lymphocytes % 22.9 Monocytes % 13.4 H Eosinophils % 3.5 Basophils % 1.0 Nucleated Red Blood Cells % 0.0 Neutrophils # 4.2 Lymphocytes # 1.6 Monocytes # 1.0 H Eosinophils # 0.3 Basophils # 0.1 Nucleated Red Blood Cells # 0.0 Sodium Level 146 H Potassium Level 4.0 Chloride Level 105 Carbon Dioxide Level 29 Anion Gap 16 Blood Urea Nitrogen 7 Creatinine 0.69 Glucose Level 119 Calcium Level 9.0 Total Bilirubin 1.2 Direct Bilirubin 0.00 Indirect Bilirubin 1.2 H Aspartate Amino Transf (AST/SGOT) 33 Alanine Aminotransferase (ALT/SGPT) 32 Alkaline Phosphatase 87 Total Protein 7.5 Albumin 3.6 Globulin 3.90 H Albumin/Globulin Ratio 0.92 Medications Medications Current Medications Ondansetron HCl (Zofran Inj) 4 mg Q6H PRN IV NAUSEA AND/OR VOMITING; Start at 19:00 Aspirin (Aspirin) 81 mg DAILY PO Last administered on 10/26/16 09:09; Admin Dose 81 MG; Start 10/24/16 at 09:00 Acetaminophen (Tylenol Tab) 650 mg Q6H PRN PO PAIN LEVEL 1-3 OR FEVER Last administered on 10/23/16 23:27; Admin Dose 650 MG; Start 10/23/16 at 19:00 Acetaminophen/ Hydrocodone Bitart ([place] (5/325)) 1 tab Q6H PRN PO PAIN LEVEL 4 -6; Start 10/23/16 at 19:00 Morphine Sulfate (morphine) 2 mg Q4H PRN IV PAIN LEVEL 7-10; Start 10/23/16 at 19:00 Docusate Sodium (Colace) 100 mg Q12H PRN PO CONSTIPATION; Start 10/23/16 at 19: 00 Magnesium Hydroxide (Milk Of Mag) 30 ml DAILY PRN PO CONSTIPATION; Start at 19:00 Bisacodyl (Dulcolax Supp) 10 mg DAILY PRN [place] CONSTIPATION; Start 10/23/16 at 19 :00 Famotidine (Pepcid) 20 mg DAILY PO Last administered on 10/26/16 09:10; Admin Dose 20 MG; Start 10/23/16 at 21:00 Meclizine HCl (Antivert) 25 mg TID PRN PO vertigo Last administered on 06:05; Admin Dose 25 MG; Start 10/23/16 at 19:00 Atorvastatin Calcium (Lipitor) 20 mg HS PO Last administered on 10/26/16 20:20 ; Admin Dose 20 MG; Start 10/24/16 at 21:00 Hydralazine HCl (Apresoline) 10 mg Q8H PRN IV SBP GREATER THAN 180 Last administered on 10/25/16 17:44; Admin Dose 10 MG; Start 10/24/16 at 15:00 Amiodarone HCl 200 mg 200 mg BID PO Last administered on 10/26/16 20:20; Admin Dose 200 MG; Start 10/25/16 at 21:00 Dextrose/Sodium Chloride (D5-1/2ns) 1,000 ml @ 125 mls/hr Q8H IV Last administered on 10/27/16 00:50; Admin Dose 125 MLS/HR; Start 10/26/16 at 17:00 Acetaminophen (Tylenol Tab) 650 mg Q4H PRN PO NON-CARDIAC PAIN LEVEL (1-3); Start 10/27/16 at 11:00 Morphine Sulfate (morphine) 2 mg Q2H PRN IV FOR NON CARDIAC PAIN (4-10); Start 10/27/16 at 11:00 Morphine Sulfate 1 mg 1 mg Q1H PRN IV PAIN; Start 10/27/16 at 11:00 Cefazolin Sodium 50 ml @ 100 mls/hr Q8 IVPB ; Start 10/27/16 at 14:00; Stop at 06:29 Amiodarone HCl/ Dextrose (Cordarone Iv/ D5W) 500 ml @ 0 mls/hr Q0M IV Last administered on 10/27/16t 11:18; Admin Dose 33.4 MLS/HR; Start 10/27/16 at 11:00 ; Stop 10/28/16 at 10:59 Losartan Potassium (Cozaar) 25 mg DAILY PO ; Start 10/28/16 at 09:00 Metoprolol Succinate (Toprol Xl) 50 mg DAILY PO ; Start 10/27/16 at 11:00 Digoxin (Digoxin) 0.125 mg DAILY@13 PO ; Start 10/27/16 at 13:00 FRANKLIN PADGETT Oct 27, 2016 11:51
[2016-10-27] MEDS ORDERED: APIX5TAB PO (11:54)
--- NOTE | 2016-10-27 12:03 | RADRPT ---
PROCEDURE: XR Chest. CLINICAL INDICATION: Post pacemaker placement TECHNIQUE: A single AP view of the chest was obtained. COMPARISON: Chest x-ray dated 10/23/2016 FINDINGS: Has been interval insertion of a left subclavian dual chamber pacemaker. There is mild coarsening of the interstitial markings. There is persistent prominence of the right hilum. No focal airspace opacification, pleural effusion or pneumothorax is seen. The cardiomedias tinal silhouette is within normal limits for size. The osseous structures are unremarkable. IMPRESSION: 1. Mild coarsening of the interstitial markings, may reflect chronic interstitial changes. No sign ificant interval change. 2. Persistent prominence of the right hilum. Consider CT of the chest for further evaluation. 3. Mild cardiomegaly and aortic atherosclerosis. 4. Interval insertion of left subclavian dual chamber pacemaker. No pneumothorax is seen. RPTAT: HH .Jennifer Cruz MD, MD Date Time Electronically viewed and signed by .Jennifer Cruz MD, on 10/27/2016 12:03 .Viky/
[2016-10-27] MEDS: METOPROLOL (XL) 50 MG TAB PO SCH (12:25)
[2016-10-27] MEDS: DIGOXIN 0.125 MG TAB PO SCH (12:25)
--- NOTE | 2016-10-27 13:48 | RADRPT ---
Vent Rate: 81 bpm RR Interval: 0 msec NE Interval: 0 msec QRS Duration: 90 msec QT Interval: 400 msec QTC Interval: 464 msec P-R-T [place]: 0 - 68 - -87 degrees Atrial fibrillation Voltage criteria for left ventricular hypertrophy Marked ST abnormality, possible inferior subendocardial injury Abnormal ECG Electronically Signed By: Venu Russo [id number]
[2016-10-27] MEDS: CEFAZOLIN 1 GM/50 ML (PMX) 50 ML IVPB SCH ×2 (14:50→22:46)
--- NOTE | 2016-10-27 17:37 | RADRPT ---
Vent Rate: 69 bpm RR Interval: 0 msec [place] Interval: 160 msec QRS Duration: 108 msec QT Interval: 484 msec QTC Interval: 518 msec P-R-T [place]: 53 - 62 - -81 degrees Normal sinus rhythm Possible Left atrial enlargement Incomplete right bundle branch block Left ventricular hypertrophy with repolarization abnormality Prolonged QT Abnormal ECG Electronically Signed By: Tomasz Robison [id number]
[2016-10-27] MEDS: hydrALAzine 20 MG INJ IV PRN (20:03)
[2016-10-27] MEDS: ATORVASTATIN 20 MG TAB PO SCH (20:57)
[2016-10-28] VITALS (7 sets, daily range): BP systolic 174–189; BP diastolic 60–81; PULSE 60–64; RESP 16–18
[2016-10-28] MEDS: CEFAZOLIN 1 GM/50 ML (PMX) 50 ML IVPB SCH (05:28)
[2016-10-28] MEDS: LEVOTHYROXINE 25 MCG TAB PO SCH (07:38)
[2016-10-28 07:40] LABS: ADD SCAN DIFF NO
[2016-10-28 07:50] LABS: BASOPHILS % 0.5 % (0.0-2.0); EOSINOPHILS # 0.2 10^3/ul (0.0-0.5); EOSINOPHILS % 2.5 % (0.0-7.0); HEMATOCRIT 38.5 % (37.0-47.0); HEMOGLOBIN 12.9 g/dl (12.0-16.0); LYMPHOCYTES # 1.1 10^3/ul (0.8-2.9); LYMPHOCYTES % 13.4 % (15.0-51.0); MEAN CORPUSCULAR HEMOGLOBIN 32.3 pg (29.0-33.0); MEAN CORPUSCULAR HGB CONC 33.5 g/dl (32.0-37.0); MEAN CORPUSCULAR VOLUME 96.3 fl (82.0-101.0); MEAN PLATELET VOLUME 10.7 fl (7.4-10.4); MONOCYTE # 1.1 10^3/ul (0.3-0.9); MONOCYTES % 14.1 % (0.0-11.0); NEUTROPHIL # 5.6 10^3/ul (1.6-7.5); NEUTROPHILS % 69.3 % (39.0-77.0); PLATELET COUNT 166 10^3/UL (140-415); RED CELL DISTRIBUTION WIDTH 11.6 % (11.5-14.5); WHITE BLOOD COUNT 8.1 10^3/ul (4.8-10.8)
[2016-10-28 08:16] LABS: ALANINE AMINOTRANSFERASE 36 IU/L (13-69); ALBUMIN 3.6 g/dl (3.3-4.9); ALBUMIN/GLOBULIN RATIO 0.92; ALKALINE PHOSPHATASE 93 IU/L (42-121); ANION GAP 18 (8-16); ASPARTATE AMINO TRANSFERASE 57 IU/L (15-46); BLOOD UREA NITROGEN 11 mg/dl (7-20); CALCIUM 9.3 mg/dl (8.4-10.2); CARBON DIOXIDE 29 mmol/L (21-31); CHLORIDE 100 mmol/L (97-110); CREATININE 0.76 mg/dl (0.44-1.00); GLUCOSE 127 mg/dl (70-220); MAGNESIUM 1.6 mg/dl (1.7-2.5); POTASSIUM 3.7 mmol/L (3.5-5.1); SODIUM 143 mmol/L (135-144); TOTAL PROTEIN 7.5 g/dl (6.1-8.1)
[2016-10-28] MEDS: FAMOTIDINE 20 MG TAB PO SCH (08:19)
[2016-10-28] MEDS: ASPIRIN 81 MG TAB PO SCH (08:19)
[2016-10-28] MEDS: AMIODARONE 200 MG TAB PO SCH (08:22)
[2016-10-28] MEDS: METOPROLOL (XL) 50 MG TAB PO SCH (08:22)
[2016-10-28] MEDS: hydrALAzine 20 MG INJ IV PRN (08:29)
--- NOTE | 2016-10-28 08:40 | PN ---
Date/Time of Note Date/Time of Note DATE: 10/28/16 TIME: 08:35 Assessment/Plan VTE Prophylaxis VTE Prophylaxis Intervention: ambulation Lines/Catheters [facility] Saline Lock Urinary Cath still in place: No Assessment/Plan Chief Complaint/Hosp Course 1. Acute bilateral cerebellar CVA, : allow for permissive HTN. s/p Anticoagulation with Lovenox with plans to switch to Eliquis upon discharge 2D echocardiogram stable 2. Paroxysmal Atrial fibrillation, with sick sinus syndrome and tachy/raissa with multiple and recurrent long pauses: s/p PPM will start xarelto tomorrow. pt has been scheduled to follow up with me on 11/04 pacemaker was interrogated today and personally reviewed with normal function and excellent thresholds. .cont dig and toprol xl amiodarone po 3. Mildly elevated Troponins, likely trop leak with episode of A fib with RVR and acute CVA. Trending down, cont medical therapy for now. 4. Hypothyroidism: defer to IM 5. Hyperlipidemia: Continue statin therapy especially in setting of acute CVA 6. Hypertension: Continue Cozaar and inc toprol xl 100 qd. Problems: Subjective 24 Hr Interval Summary Free Text/Dictation d/w staff and rhythm was reviewed. pt remains in NSR/ Apaced. she denies any chest pain or pressure to me. meds reviewed. OBJECTIVE: General: no acute distress HEENT: NC/AT. pupils are equal. round. NECK: NO JVD. no stridor. CV: irregularly irregular. . systolic murmur; no gallop or rubs. PULM: no wheezing or rhonchi. GI: SOFT, NT, ND, no rebound or guarding Extremity: trace B/L LE edema. no clubbing. neuro: awake and alert,. Psych: anxious but pleasant rectal: deferred chest: s/p PPM no hematoma or bleeding Exam/Review of Systems Vital Signs Vitals Vital Signs Date Time Temp Pulse Resp B/P Pulse Ox O2 Delivery O2 Flow Rate FiO2 10/28/16 08:27 60 10/28/16 07:45 99.1 16 184/60 94 10/27/16 12:06 Room Air 10/26/16 23:51 2.0 Intake and Output 10/27/16 10/27/16 10/28/16 15:00 23:00 07:00 Intake Total 100 ml 550 ml 350 ml Balance 100 ml 550 ml 350 ml Results Result Diagram: 10/28/16 0716 10/27/16 0741 Results 24 hrs Laboratory Tests Test 10/28/16 07:16 White Blood Count 8.1 Red Blood Count 4.00 L Hemoglobin 12.9 Hematocrit 38.5 Mean Corpuscular Volume 96.3 Mean Corpuscular Hemoglobin 32.3 Mean Corpuscular Hemoglobin Concent 33.5 Red Cell Distribution Width 11.6 Platelet Count 166 Mean Platelet Volume 10.7 H Neutrophils % 69.3 Lymphocytes % 13.4 L Monocytes % 14.1 H Eosinophils % 2.5 Basophils % 0.5 Nucleated Red Blood Cells % 0.0 Neutrophils # 5.6 Lymphocytes # 1.1 Monocytes # 1.1 H Eosinophils # 0.2 Basophils # 0.0 Nucleated Red Blood Cells # 0.0 Medications Medications Current Medications Ondansetron HCl (Zofran Inj) 4 mg Q6H PRN IV NAUSEA AND/OR VOMITING; Start at 19:00 Aspirin (Aspirin) 81 mg DAILY PO Last administered on 10/28/16 08:19; Admin Dose 81 MG; Start 10/24/16 at 09:00 Acetaminophen (Tylenol Tab) 650 mg Q6H PRN PO PAIN LEVEL 1-3 OR FEVER Last administered on 10/23/16 23:27; Admin Dose 650 MG; Start 10/23/16 at 19:00 Acetaminophen/ Hydrocodone Bitart ([place] (5/325)) 1 tab Q6H PRN PO PAIN LEVEL 4 -6; Start 10/23/16 at 19:00 Morphine Sulfate (morphine) 2 mg Q4H PRN IV PAIN LEVEL 7-10; Start 10/23/16 at 19:00 Docusate Sodium (Colace) 100 mg Q12H PRN PO CONSTIPATION; Start 10/23/16 at 19: 00 Magnesium Hydroxide (Milk Of Mag) 30 ml DAILY PRN PO CONSTIPATION; Start at 19:00 Bisacodyl (Dulcolax Supp) 10 mg DAILY PRN [place] CONSTIPATION; Start 10/23/16 at 19 :00 Famotidine (Pepcid) 20 mg DAILY PO Last administered on 10/28/16 08:19; Admin Dose 20 MG; Start 10/23/16 at 21:00 Meclizine HCl (Antivert) 25 mg TID PRN PO vertigo Last administered on 06:05; Admin Dose 25 MG; Start 10/23/16 at 19:00 Atorvastatin Calcium (Lipitor) 20 mg HS PO Last administered on 10/27/16 20:57 ; Admin Dose 20 MG; Start 10/24/16 at 21:00 Hydralazine HCl (Apresoline) 10 mg Q8H PRN IV SBP GREATER THAN 180 Last administered on 10/28/16 08:29; Admin Dose 10 MG; Start 10/24/16 at 15:00 Amiodarone HCl (Cordarone) 200 mg BID PO Last administered on 10/28/16 08:22; Admin Dose 200 MG; Start 10/25/16 at 21:00 Acetaminophen (Tylenol Tab) 650 mg Q4H PRN PO NON-CARDIAC PAIN LEVEL (1-3); Start 10/27/16 at 11:00 Morphine Sulfate (morphine) 2 mg Q2H PRN IV FOR NON CARDIAC PAIN (4-10); Start 10/27/16 at 11:00 Morphine Sulfate 1 mg 1 mg Q1H PRN IV PAIN; Start 10/27/16 at 11:00 Amiodarone HCl/ Dextrose (Cordarone Iv/ D5W) 500 ml @ 0 mls/hr Q0M IV Last administered on 10/27/16 11:18; Admin Dose 33.4 MLS/HR; Start 10/27/16 at 11:00 ; Stop 10/28/16 at 10:59 Losartan Potassium (Cozaar) 25 mg DAILY PO Last administered on 10/28/16 08:23 ; Admin Dose 25 MG; Start 10/28/16 at 09:00 Metoprolol Succinate (Toprol Xl) 50 mg DAILY PO Last administered on 10/28/16 08:22; Admin Dose 50 MG; Start 10/27/16 at 11:00 Digoxin (Digoxin) 0.125 mg DAILY@13 PO Last administered on 10/27/16 12:25; Admin Dose 0.125 MG; Start 10/27/16 at 13:00 KAYLA PRINGLE MD Oct 28, 2016 08:40
[2016-10-28 08:48] LABS: THYROID STIMULATING HORMONE < 0.015 MIU/L (0.465-4.680)
[2016-10-28] MEDS ORDERED: LOSARTAN 25 MG TAB PO SCH ×2 (09:00→21:00)
--- NOTE | 2016-10-28 11:06 | PN ---
Date/Time of Note Date/Time of Note DATE: 10/28/16 TIME: 10:58 Assessment/Plan VTE Prophylaxis VTE Prophylaxis Intervention: other (To resume Xarelto on 10/29) Lines/Catheters [facility] Saline Lock Urinary Cath still in place: No Assessment/Plan Assessment/Plan 81-year-old female with: 1. Acute bilateral cerebellar CVA, symptomatic with vertigo and nausea, also found to be in paroxysmal atrial fibrillation. Still with Vertigo. Continue blood pressure control with Cozaar and Toprol. Anticoagulation to be resumed tomorrow 10/29 with Xarelto 15 mg qhs . 2D echocardiogram stable Appreciate neurology. Discharge to group home facility today 2. Paroxysmal Atrial fibrillation, with frequent pauses so Bblockers discontinued and patient back and forth sinus rhythm and A. fib overnight but remains rate controlled most of the time. Continue amiodarone, status post PPM placement and now on Toprol XL too. Xarelto 15 mg p.o. qhs to be started tomorrow for paroxysmal atrial fibrillation and secondary stroke prevention. 3. Mildly elevated Troponins, likely trop leak with episode of A fib with RVR and acute CVA. Trending down, on ASA and continue amiodarone Back on beta-blockers. Status post PPM placement. 4. Hypothyroidism: TFTs showing mild suppression of TSH, decreased Synthroid dosing to 25 mcg daily. Will need repeat thyroid function testing in 4-6 weeks 5. Hyperlipidemia: Continue statin therapy especially in setting of acute CVA 6. Hypertension: Continue Cozaar and Toprol-XL. Po Hydralazine prn. Prophylaxis: Patient to resume full anticoagulation in setting of A. fib and acute CVA on 10/29. Pepcid for GI prophylaxis Disposition: Neurology and Cardiology following. Status post PPM placement yesterday, SNF discharged today with outpatient follow-up with cardiology on at [address] Purcell. Subjective 24 Hr Interval Summary Free Text/Dictation Patient feels better, she denies dizziness today, she started eating more but still needs physical therapy. She will be discharged to a group home facility. Pacemaker site has been checked by cardiology and stable, pacemaker working well per cardiology. She is to start Xarelto for anticoagulation tomorrow at group home facility Discharge planning to group home facility today Exam/Review of Systems Vital Signs Vitals Vital Signs Date Time Temp Pulse Resp B/P Pulse Ox O2 Delivery O2 Flow Rate FiO2 10/28/16 08:27 60 10/28/16 07:45 99.1 16 184/60 94 10/27/16 12:06 Room Air 10/26/16 23:51 2.0 Intake and Output 10/27/16 10/27/16 10/28/16 15:00 23:00 07:00 Intake Total 100 ml 550 ml 350 ml Balance 100 ml 550 ml 350 ml Exam Constitutional: alert, frail, oriented Respiratory: clear to auscultation, normal air movement Cardiovascular: nl pulses, regular rate and rhythm Gastrointestinal: non-tender, soft Musculoskeletal: nl extremities to inspection Extremities: normal pulses 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, nl mental status, nl speech, other ( Generalized weakness improved, vertigo resolved) Results Result Diagram: 10/28/16 0716 10/28/16 0716 Results 24 hrs Laboratory Tests Test 10/28/16 07:16 White Blood Count 8.1 Red Blood Count 4.00 L Hemoglobin 12.9 Hematocrit 38.5 Mean Corpuscular Volume 96.3 Mean Corpuscular Hemoglobin 32.3 Mean Corpuscular Hemoglobin Concent 33.5 Red Cell Distribution Width 11.6 Platelet Count 166 Mean Platelet Volume 10.7 H Neutrophils % 69.3 Lymphocytes % 13.4 L Monocytes % 14.1 H Eosinophils % 2.5 Basophils % 0.5 Nucleated Red Blood Cells % 0.0 Neutrophils # 5.6 Lymphocytes # 1.1 Monocytes # 1.1 H Eosinophils # 0.2 Basophils # 0.0 Nucleated Red Blood Cells # 0.0 Sodium Level 143 Potassium Level 3.7 Chloride Level 100 Carbon Dioxide Level 29 Anion Gap 18 H Blood Urea Nitrogen 11 Creatinine 0.76 Glucose Level 127 Calcium Level 9.3 Magnesium Level 1.6 L Total Bilirubin 1.0 Direct Bilirubin 0.00 Indirect Bilirubin 1.0 Aspartate Amino Transf (AST/SGOT) 57 H Alanine Aminotransferase (ALT/SGPT) 36 Alkaline Phosphatase 93 Total Protein 7.5 Albumin 3.6 Globulin 3.90 H Albumin/Globulin Ratio 0.92 Thyroid Stimulating Hormone (TSH) < 0.015 L Free Thyroxine 2.16 H Medications Medications Current Medications Ondansetron HCl (Zofran Inj) 4 mg Q6H PRN IV NAUSEA AND/OR VOMITING; Start at 19:00 Aspirin (Aspirin) 81 mg DAILY PO Last administered on 10/28/16 08:19; Admin Dose 81 MG; Start 10/24/16 at 09:00 Acetaminophen (Tylenol Tab) 650 mg Q6H PRN PO PAIN LEVEL 1-3 OR FEVER Last administered on 10/23/16 23:27; Admin Dose 650 MG; Start 10/23/16 at 19:00 Acetaminophen/ Hydrocodone Bitart ([place] (5/325)) 1 tab Q6H PRN PO PAIN LEVEL 4 -6; Start 10/23/16 at 19:00 Morphine Sulfate (morphine) 2 mg Q4H PRN IV PAIN LEVEL 7-10; Start 10/23/16 at 19:00 Docusate Sodium (Colace) 100 mg Q12H PRN PO CONSTIPATION; Start 10/23/16 at 19: 00 Magnesium Hydroxide (Milk Of Mag) 30 ml DAILY PRN PO CONSTIPATION; Start at 19:00 Bisacodyl (Dulcolax Supp) 10 mg DAILY PRN [place] CONSTIPATION; Start 10/23/16 at 19 :00 Famotidine (Pepcid) 20 mg DAILY PO Last administered on 10/28/16 08:19; Admin Dose 20 MG; Start 10/23/16 at 21:00 Meclizine HCl (Antivert) 25 mg TID PRN PO vertigo Last administered on 06:05; Admin Dose 25 MG; Start 10/23/16 at 19:00 Atorvastatin Calcium (Lipitor) 20 mg HS PO Last administered on 10/27/16 20:57 ; Admin Dose 20 MG; Start 10/24/16 at 21:00 Hydralazine HCl (Apresoline) 10 mg Q8H PRN IV SBP GREATER THAN 180 Last administered on 10/28/16 08:29; Admin Dose 10 MG; Start 10/24/16 at 15:00 Amiodarone HCl (Cordarone) 200 mg BID PO Last administered on 10/28/16 08:22; Admin Dose 200 MG; Start 10/25/16 at 21:00 Acetaminophen (Tylenol Tab) 650 mg Q4H PRN PO NON-CARDIAC PAIN LEVEL (1-3); Start 10/27/16 at 11:00 Morphine Sulfate (morphine) 2 mg Q2H PRN IV FOR NON CARDIAC PAIN (4-10); Start 10/27/16 at 11:00 Morphine Sulfate 1 mg 1 mg Q1H PRN IV PAIN; Start 10/27/16 at 11:00 Amiodarone HCl/ Dextrose (Cordarone Iv/ D5W) 500 ml @ 0 mls/hr Q0M IV Last administered on 10/27/16 11:18; Admin Dose 33.4 MLS/HR; Start 10/27/16 at 11:00 ; Stop 10/28/16 at 10:59 Losartan Potassium (Cozaar) 25 mg DAILY PO Last administered on 10/28/16 08:23 ; Admin Dose 25 MG; Start 10/28/16 at 09:00 Metoprolol Succinate (Toprol Xl) 50 mg DAILY PO Last administered on 10/28/16 08:22; Admin Dose 50 MG; Start 10/27/16 at 11:00 Digoxin (Digoxin) 0.125 mg DAILY@13 PO Last administered on 10/27/16 12:25; Admin Dose 0.125 MG; Start 10/27/16 at 13:00 FRANKLIN PADGETT Oct 28, 2016 11:06
--- NOTE | 2016-10-28 11:10 | PDOCDIS ---
Discharge Instructions CONDITION Patient Condition: Stable HOME CARE INSTRUCTIONS: Diet Instructions: Low Fat /Cholesterol ACTIVITY: Activity Restrictions: Slowly Increase Activity Avoid heavy lifting Do not operate Machinery Do not operate Power Tool Avoid Heavy Housework FOLLOW UP/APPOINTMENTS Follow-up Plan Follow-up with primary care physician in 1-2 weeks Follow-up with cardiology, Dr. Purcell on November 04 at 1:30 PM in his office Start Xarelto 15 mg p.o. qhs tomorrow, October 29 Please follow post pacemaker instructions FRANKLIN PADGETT Oct 28, 2016 11:09
[2016-10-28] MEDS: DIGOXIN 0.125 MG TAB PO SCH (14:16)
[2016-10-29] MEDS ORDERED: RIVAROXABAN 20 MG TABLET PO SCH (17:55)
== END 2016-10-28 15:06 | DRG 42 ==
LOC: E/R 11:29 → MS4 14:30 → TEL 21:48 → MS4 22:26 → TEL 10-24 19:55
PROVIDERS: ADMIT Internal Medicine; ATTEND Internal Medicine
PROC: 02H63JZ Insertion of Pacemaker Lead into Right Atrium, Percutaneous Approach (ICD-10-PCS; 2016-10-27)
PROC: 02HK3JZ Insertion of Pacemaker Lead into Right Ventricle, Percutaneous Approach (ICD-10-PCS; principal; 2016-10-27 09:30)
DX: I63.9 Cerebral infarction, unspecified (principal); I49.5 Sick sinus syndrome; I48.0 Paroxysmal atrial fibrillation; I10 Essential (primary) hypertension; E87.6 Hypokalemia; E78.5 Hyperlipidemia, unspecified; E03.9 Hypothyroidism, unspecified
CPT/HCPCS: 36415; 70450; 70544; 70549; 70551; 71010; 80048; 80053; 80061; 82150; 82550; 82553; 82962; 83036; 83605; 83690; 83735; 84100; 84439; 84443; 84484; 85025; 85610; 85730; 87040; 87086; 92523; 92526; 92610; 93005; 93306; 96365; 96375; J0282; J0360; J0690; J1650; J2405; J2543; J3010; J3370; J3475; J3480; J7030; J7040; J7042; J7060; Q9967